=== PATIENT | female | born 2000 | race African-American/Black ===

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

== ENCOUNTER 2018-01-16 18:19 | Emergency (ER) | payer BC, MEDICAID ==
[2018-01-16 18:29] VITALS: BP 126/77
[2018-01-16] MEDS ORDERED: NS 0.9% 1000 ML* 1,000 ML IV ONE (19:46)
[2018-01-16] MEDS ORDERED: diPHENhydraMINE IV* 50 MG/ML 1 ml VIAL (BENADRYL) IV ONE (19:47)
[2018-01-16] MEDS ORDERED: Ketorolac INJ* 30 MG/ML 1 ML VIAL IV PUSH ONE (19:47)
--- NOTE | 2018-01-16 19:54 | UC ---
Headache HPI - HPI Summary HPI Summary: COMPLAINS OF 5 DAYS OF DIFFUSE HEADACHE. WHEN ASKED TO DESCRIBE HER PAIN AND GIVEN OPTIONS OF THROBBING, SHARP, DULL-SHE STATES "YES EVERYTHING". HAS A HISTORY OF HEADACHES AND MIGRAINES RUN IN HER FAMILY. STATES SHE CAME IN TODAY BECAUSE THIS WAS NOT LETTING UP. SHE COMPLAINS OF SOME ASSOCIATED DIZZINESS AND VISION FEELS FUZZY. - History Of Current Complaint Chief Complaint: UCHeadache Stated Complaint: HEADACHES Time Seen by Provider: 01/16/18 19:27 Hx Obtained From: Patient Hx Last Menstrual Period: 01/07/18 Onset/Duration: Gradual Onset, Lasting Days, Still Present Pain Intensity: 5 Pain Scale Used: 0-10 Numeric Timing: Constant Character: Sharp, Dull, Throbbing, Migraine Location of Headache: Diffuse Aggravating Factor(s): Bright Lights Allevating Factor(s): Nothing Associated Signs And Symptoms: Positive: Dizziness, Nausea. Negative: Decreased LOC - Allergies/Home Medications Allergies/Adverse Reactions: Allergies Allergy/AdvReac Type Severity Reaction Status Date / Time seasonal Allergy Eyes Uncoded 01/16/18 18:29 Itchy/Swollen/Red/Watery Home Medications: Home Medications Ibuprofen 400 mg PO 01/16/18 [History] PMH/Surg Hx/FS Hx/Imm Hx Respiratory History: Asthma Neurological History: Migraine Other History Of: Negative For: HIV, Hepatitis C - Surgical History Surgical History: Yes Surgery Procedure, Year, and Place: LIP SURGERY 2014 - Family History Known Family History: Positive: Hypertension, Renal Disease - FATHERS FAIMILY KIDNEY STONES, Blood Disorder - BLOOD CLOTS ON MOTHER'S SIDE, Other - asthma, MIGRAINES Negative: Cardiac Disease, Diabetes - Social History Alcohol Use: Rare Alcohol Amount: pt states daily or weekly Substance Use Type: None Substance Use Comment - Amount & Last Used: a week ago Smoking Status (MU): Never Smoked Tobacco Have You Smoked in the Last Year: No Household Exposure Type: Cigarettes - Immunization History Most Recent Influenza Vaccination: 2016 Most Recent Pneumonia Vaccination: never Vaccination Up to Date: Yes Review of Systems Constitutional: Negative Eyes: Photophobia Respiratory: Negative Cardiovascular: Negative Gastrointestinal: Negative Neurological: Headache, Other - DIZZY All Other Systems Reviewed And Are Negative: Yes Physical Exam Triage Information Reviewed: Yes Appearance: Well-Appearing, No Pain Distress, Well-Nourished Vital Signs: Initial Vital Signs Temp 99.0 F 01/16/18 18:25 Pulse 107 01/16/18 18:25 Resp 18 01/16/18 18:25 BP 126/77 01/16/18 18:25 Pulse Ox 100 01/16/18 18:25 Vital Signs Reviewed: Yes Eyes: Positive: Conjunctiva Clear ENT: Positive: Hearing grossly normal, Pharynx normal, TMs normal Neck: Positive: Supple, Nontender, No Lymphadenopathy Respiratory Exam: Normal Cardiovascular Exam: Normal Abdomen Description: Positive: Soft Musculoskeletal: Positive: No Edema Psychological: Positive: Age Appropriate Behavior Skin: Negative: rashes Re-Evaluation - Re-Evaluation First Eval Re-Evaluation Time: 20:40 - CONCEPCION IS GONE BUT PT C/O FEELING ANXIOUS AND COLD Change: Improved Second Eval Re-Evaluation Time: 21:20 - FEELING BETTER AFTER IV PULLED AND WARM BLANKET. READY FOR D/C Change: Improved Headache Course/Dx - Differential Dx/Diagnosis Provider Diagnoses: HEADACHE Discharge - Sign-Out/Discharge Documenting (check all that apply): Patient Departure All imaging exams completed and their final reports reviewed: No Studies - Discharge Plan Condition: Stable Disposition: HOME Patient Education Materials: General Headache (ED) Referrals: Ti Segura MD [Primary Care Provider] - 1 Week Additional Instructions: YOUR HEADACHE IMPROVED AFTER 30MG TORADOL AND 50MG OF BENADRYL. BE SURE TO STAY WELL HYDRATED AND RESTED. FOLLOW-UP WITH YOUR PCP. - Billing Disposition and Condition Condition: STABLE Disposition: Home
== END 2018-01-16 21:30 | disposition home or self-care (01) ==
LOC: UCEAST 18:19
DX: R51 Headache (principal); R42 Dizziness and giddiness; R11.0 Nausea
CPT/HCPCS: 96360; 96374; 96375; 99211; G0463; J1200; J1885

== ENCOUNTER 2018-01-17 21:25 | Emergency (ER) | payer BC, MEDICAID ==
[2018-01-17] MEDS ORDERED: Ketorolac INJ* 30 MG/ML 1 ML VIAL IV PUSH ONE (22:16)
[2018-01-17] MEDS ORDERED: PROCHLORPERAZINE INJ 5 MG/ML 2 ML VIAL IV ONE (22:16)
[2018-01-17] MEDS ORDERED: diPHENhydraMINE PO* 50 MG PO ONE (22:17)
[2018-01-17] MEDS ORDERED: NS 0.9% 1000 ML* 1,000 ML IV ONE (22:17)
--- NOTE | 2018-01-17 22:50 | ED ---
Headache - HPI Summary HPI Summary: 17-year-old female presents with headache since yesterday. She was seen yesterday in urgent care and headache was treated and was resolved. she admits to seeing flasher in the periphery. she states sometimes after the flashers her vision goes black. She states has had this before. She states she is dizzy. She admits to occasionally nausea but no vomiting. headache is a 6 out of 10. it is all over. has history of migraines. no fever. no neck pain. similar to previous migraines. did not try anything. - History Of Current Complaint Chief Complaint: EDHeadache Stated Complaint: HEADACHE/VISION LOSS Time Seen by Provider: 01/17/18 22:06 Hx Last Menstrual Period: 01/07/18 - Allergies/Home Medications Allergies/Adverse Reactions: Allergies Allergy/AdvReac Type Severity Reaction Status Date / Time seasonal Allergy Eyes Uncoded 01/17/18 21:30 Itchy/Swollen/Red/Watery PMH/Surg Hx/FS Hx/Imm Hx Endocrine/Hematology History: Reports: Hx Thyroid Disease, Hx Anemia Denies: Hx Diabetes Cardiovascular History: Denies: Hx Hypertension, Hx Pacemaker/ICD Respiratory History: Reports: Hx Asthma, Hx Seasonal Allergies Denies: Hx Chronic Obstructive Pulmonary Disease (COPD) GI History: Reports: Hx Gastroesophageal Reflux Disease Denies: Hx Ulcer History: Denies: Hx Renal Disease Musculoskeletal History: Reports: Hx Fibromyalgia Sensory History: Denies: Hx Hearing Aid Psychiatric History: Reports: Hx Anxiety, Hx Depression, Hx Community Mental Health Tx, Hx Bipolar Disorder Denies: Hx Eating Disorder - pt states she restricts, Hx Panic Disorder, Hx Inpatient Treatment, Hx Suicide Attempt, Hx of Violent Episodes Against Others, Hx Substance Abuse - Surgical History Surgery Procedure, Year, and Place: LIP SURGERY 2014 - Immunization History Date of Tetanus Vaccine: unk Date of Influenza Vaccine: none Immunizations Up to Date: Yes Infectious Disease History: No Infectious Disease History: Denies: Hx Clostridium Difficile, Hx Hepatitis, Hx Human Immunodeficiency Virus (HIV), Hx of Known/Suspected MRSA, Hx Shingles, Hx Tuberculosis, Hx Known/ Suspected VRE, Hx Known/Suspected VRSA, History Other Infectious Disease, Traveled Outside the [place] in Last 30 Days - Family History Known Family History: Positive: Hypertension, Renal Disease - FATHERS FAIMILY KIDNEY STONES, Blood Disorder - BLOOD CLOTS ON MOTHER'S SIDE, Other - asthma, MIGRAINES Negative: Cardiac Disease, Diabetes - Social History Alcohol Use: None Alcohol Amount: pt states daily or weekly. 01/17 denies use Hx Substance Use: No Substance Use Type: Reports: None Substance Use Comment - Amount & Last Used: a week ago Hx Tobacco Use: No Smoking Status (MU): Never Smoked Tobacco Have You Smoked in the Last Year: No Review of Systems Negative: Fever Positive: Other - flashing lights Negative: Chest Pain Negative: Shortness Of Breath Positive: Headache All Other Systems Reviewed And Are Negative: Yes Physical Exam Triage Information Reviewed: Yes Vital Signs On Initial Exam: Initial Vitals Temp Pulse Resp BP Pulse Ox 98.1 F 109 16 136/92 100 01/17/18 21:27 01/17/18 21:27 01/17/18 21:27 01/17/18 21:27 01/17/18 21:27 Vital Signs Reviewed: Yes Appearance: Positive: Well-Appearing Skin: Positive: Warm, Dry Head/Face: Positive: Normal Head/Face Inspection Eyes: Positive: Normal, EOMI, AJAY, Conjunctiva Clear, Other: - normal fundoscopic exam ENT: Positive: Normal ENT inspection, Pharynx normal, TMs normal Respiratory/Lung Sounds: Positive: Clear to Auscultation, Breath Sounds Present Cardiovascular: Positive: Normal, RRR Abdomen Description: Positive: Nontender, Soft Bowel Sounds: Positive: Present Musculoskeletal: Positive: Normal Neurological: Positive: Sensory/Motor Intact, Alert, Oriented to Person Place, Time, CN Intact II-III Psychiatric: Positive: Normal Diagnostics - Vital Signs Vital Signs Temp Pulse Resp BP Pulse Ox 01/17/18 21:27 98.1 F 109 16 136/92 100 - Laboratory Lab Statement: Any lab studies that have been ordered have been reviewed, and results considered in the medical decision making process. Headache Course/Dx - Course Course Of Treatment: 17-year-old female presents with headache since yesterday. She was seen yesterday in urgent care and headache was treated and was resolved. she admits to seeing flasher in the periphery. she states sometimes after the flashers her vision goes black. She states has had this before. She states she is dizzy. She admits to occasionally nausea but no vomiting. headache is a 6 out of 10. it is all over. has history of migraines. no fever. no neck pain. similar to previous migraines. did not try anything. on exam normal neuro exam. was going to give migraine cocktail but patient after waiting decided not to get medication. declined any other meds and wants to be discharge. will give referral to neurology. patient understand and agrees with plan. - Diagnoses Differential Diagnosis/HQI/PQRI: Migraine, Sinus Headache, Tension Headache Provider Diagnoses: Migraine headache Discharge - Sign-Out/Discharge Documenting (check all that apply): Patient Departure - Discharge Plan Condition: Good Disposition: HOME Patient Education Materials: Migraine Headache (ED) Referrals: Maxi Babin MD [Medical Doctor] - Ti Segura MD [Primary Care Provider] - Additional Instructions: follow up with neurology try Excedrin for migraines Drink plenty of fluids Return to ED if develop any new or worsening symptoms - Billing Disposition and Condition Condition: GOOD Disposition: Home
[2018-01-17 23:17] VITALS: BP 115/75
== END 2018-01-17 23:16 | disposition home or self-care (01) ==
LOC: ED 21:25
DX: G43.909 Migraine, unspecified, not intractable, without status migrainosus (principal)
CPT/HCPCS: 96374; 96375; 99282; A9270-GY; J0780; J1885

== ENCOUNTER 2018-02-27 01:33 | Emergency (ER) | payer MEDICAID ==
--- OUTSIDE RECORDS SUMMARY | 2018-02-27 02:00 | XMS REPORT ---
:2000 External Reference #:[id number] Author Organization [facility] Address [address] [place] [address] Phone [phone] Care Team Providers Name Role Phone Ti Segura MD Care Team Information Rn Admit Unavailable Ti Segura MD Primary Care Physician Unavailable Payers Type Date Identification Numbers Payment Provider Subscriber Medicaid Policy Number: [id number] [place] [employer] Name: Medicaid [address] PayID: [id number] [facility] [place] [address] Problems Description No Information Family History Date [...] SIG Indications Ordering Provider Ativan Active Tablets 2mg 1tabs one N64.52 Ti Gibson before Colton zheng MD . No Active Hx Unknown Medications 018 - 018 Buspirone HCL Hx Tablets 10mg 90tabs 1 by F41.9 Ti Gibson - mouth Colton MD stu 018 times a day Topamax Hx Tablets 50mg 60tabs take 1 G44.52 Ti Gibson - tablet by Colton mouth in MD Gibson the morning for a week, then take twice daily. Ativan Hx Tablets 1mg 1tabs one by N64.52 Ti Gibson - mouth 30 Colton min MD Gibson before MRI Seroquel Hx Tablets 100mg 30tabs take one F31.9 Ti Gibson - by mouth Colton nightly. MD Gibson Loratadine 0 Hx Tablets 10mg 1 by Unknown 000 - mouth every day 018 Ibuprofen 0 Hx Tablets 200mg 3 PO Unknown 000 - Q8HRS 018 Amoxicillin/Cl 0 Hx Tablets 875-125mg 1 twice a Unknown avulanate 000 - day w/ Potassium food. 018 Meclizine HCL Hx Tablets 25mg take 1 by Unknown 000 - mouth 3 times 018 daily as needed Xanax 0 Hx Tablets 0.25mg 1 tab by Unknown 000 - mouth bid - tid as 018 needed anxiety Proair HFA 0 Hx Aerosol 108(90Base) 2 puffs Unknown 000 - mcg/Act every 4-6 hours as 018 needed for cough Vital Signs Date Vital Result Comment 01/28/2018 BP Systolic 110 mmHg BP Diastolic 72 mmHg Heart Rate 80 /min Body Temperature 97.7 F Respiratory Rate 16 /min Height 61 inches 5'1" Weight 179.25 lb BMI (Body Mass Index) 33.9 kg/m2 Body Mass Index Percentile 97 % Weight Percentile 94th Height Percentile 10 % 11/25/2017 BP Systolic 100 mmHg BP Diastolic [...] Result H/L Range Note Laboratory test finding 01/28/2018 Thyroid Stimulating <pending> Hormone (TSH) Laboratory test finding 01/28/2018 Prolactin <pending> Estradiol <pending> Laboratory test finding 12/02/2017 Poc , Urine Negative Negative 1 Poc Urinalysis 12/02/2017 Poc Glucose, Urine Negative Negative Poc Bilirubin, Urine Negative Negative Poc Ketone, Urine Negative Negative Poc Specific [place], Urine 1.020 1.010-1.030 Poc Blood, Urine Negative Negative Poc pH, Urine 7.0 5-9 Poc Protein, Urine Negative Negative Poc Urobilinogen, Urine 0.2 Negative Poc Nitrite, Urine Negative Negative Poc Leukocytes, Urine Negative Negative Poc Color, Urine Yellow Poc Clarity, Urine Clear 2 CBC No Diff 10/23/2017 White Blood Count [...] Egfr Non- 124.0 >60 Egfr 150.0 >60 3 Laboratory test finding 10/23/2017 HCG < 0.60 mIU/mL 4 Laboratory test finding 10/23/2017 [facility] [...] Egfr Non- 107.8 >60 Egfr 130.4 >60 5 Laboratory test finding 09/27/2017 HCG < 0.60 mIU/mL 6 Acetaminophen < 15 g/mL 7 Alcohol < 10 mg/dL <10 Salicylate < 2.50 mg/dL <30 TSH (Thyroid Stim Horm) 1.44 mcIU/mL 0.34-5.60 Laboratory test finding 09/25/2017 TSH 0.73 mIU/L 0.50-6.00 Laboratory test finding 09/25/2017 C-Reactive Protein, Quant 0.4 mg/L 0.0 -4.9 8 Prolactin 38.1 ng/mL High 4.8-23.3 8 CBC Electronic (Fma New) 09/25/2017 WBC 5.20 [...] High 0.7-7.0 Basophil% 0.6 % 0-1.2 1 Lending Activities Supervisor: [id number] If is still suspected, please repeat test after 48 to 72 hours. 2 Lending Activities Supervisor: [id number] 3 Because ethnic data is not always [...] levels of up to 20 mIU/mL 5 Because ethnic data is not always readily [...] 15-29 5 Kidney failure <15 (or dialysis) 6 <5.0 Negative 5.0 - 25.0 Indeterminate (Repeat testing recommended after 72 hours) >25.0 Positive Perimenopausal women can display HCG levels of up to 20 mIU/mL 7 Therapeutic concentration: <50 ug/mL Toxic concentration: >120 ug/mL 8 1SST Procedures Description No Information Encounters Type Date Location Provider CPT E/M Dx Office Visit 11/25/2017 2:00p [place] [id number] G44.52 F41.9 Office Visit 10/28/2017 4:10p [place] [address] G44.52 N64.52 F31.9 Office Visit 10/16/2017 3:50p [place] [address] N64.52 Office Visit 09/25/2017 2:00p [place] [address] N61.1 F31.9 R42 Plan of Care Future Appointment(s):03/03/2018 12:00 pm - Ti Segura MD at Main [id number]/28/2018 - Ti Segura MDN64.52 Nipple dischargeNew Medication :Ativan 2 mgNew Xrays:MRI Pituitary W/Wo [id number] New daily persistent headache (NDPH)AllComments:~B_~U_Medication Management~b_~u_ Patient Understands medications she's taking? Yes No Are there Barriers to Adherence? Yes No Has the patient been asked about herbal supplements and therapies, and OTC meds? Yes No
[2018-02-27] MEDS ORDERED: Butalb/Acetamin/Caff TAB* 1 TAB PO ONE (02:15)
--- NOTE | 2018-02-27 02:24 | ED ---
Headache - HPI Summary HPI Summary: The patient is a 17 y/o F presenting to [facility] with a chief complaint of a headache that has been occurring for the last three hours. She has been to the hospital for the same headache before. She has taken Ibuprofen to no relief. There is also associated numbness in her left arm and leg. She denies fever and sore throat. - History Of Current Complaint Chief Complaint: EDHeadache Stated Complaint: HEADACHE, LEFT SIDED NUMBNESS Time Seen by Provider: 02/27/18 02:09 Hx Obtained From: Patient Hx Last Menstrual Period: 01/07/18 Onset/Duration: Sudden Onset, Started hours ago - three, Still Present Initially Headache Was: Moderate Currently Pain Is: Moderate Timing: Constant Character: Typical Headache Location of Headache: Diffuse Aggravating Factor: Nothing Allevating Factors: Nothing Associated Signs And Symptoms: Other (Noted In Comments) - POSITIVE: numbness in left arm and leg; NEGATIVE: fever, sore throat - Allergies/Home Medications Allergies/Adverse Reactions: Allergies Allergy/AdvReac Type Severity Reaction Status Date / Time seasonal Allergy Eyes Uncoded 01/17/18 21:30 Itchy/Swollen/Red/Watery PMH/Surg Hx/FS Hx/Imm Hx Endocrine/Hematology History: Reports: Hx Thyroid Disease, Hx Anemia Denies: Hx Diabetes Cardiovascular History: Denies: Hx Hypertension, Hx Pacemaker/ICD Respiratory History: Reports: Hx Asthma, Hx Seasonal Allergies Denies: Hx Chronic Obstructive Pulmonary Disease (COPD) GI History: Reports: Hx Gastroesophageal Reflux Disease Denies: Hx Ulcer History: Denies: Hx Renal Disease Musculoskeletal History: Reports: Hx Fibromyalgia Sensory History: Denies: Hx Hearing Aid Psychiatric History: Reports: Hx Anxiety, Hx Depression, Hx Community Mental Health Tx, Hx Bipolar Disorder Denies: Hx Eating Disorder - pt states she restricts, Hx Panic Disorder, Hx Inpatient Treatment, Hx Suicide Attempt, Hx of Violent Episodes Against Others, Hx Substance Abuse - Surgical History Surgery Procedure, Year, and Place: LIP SURGERY 2014 - Immunization History Date of Tetanus Vaccine: unk Date of Influenza Vaccine: none Infectious Disease History: No Infectious Disease History: Denies: Hx Clostridium Difficile, Hx Hepatitis, Hx Human Immunodeficiency Virus (HIV), Hx of Known/Suspected MRSA, Hx Shingles, Hx Tuberculosis, Hx Known/ Suspected VRE, Hx Known/Suspected VRSA, History Other Infectious Disease, Traveled Outside the [place] in Last 30 Days - Family History Known Family History: Positive: Hypertension, Renal Disease - FATHERS FAIMILY KIDNEY STONES, Blood Disorder - BLOOD CLOTS ON MOTHER'S SIDE, Other - asthma, MIGRAINES Negative: Cardiac Disease, Diabetes - Social History Alcohol Use: None Alcohol Amount: pt states daily or weekly. 01/17 denies use Hx Substance Use: No Substance Use Type: Reports: None Substance Use Comment - Amount & Last Used: a week ago Hx Tobacco Use: No Smoking Status (MU): Never Smoked Tobacco Have You Smoked in the Last Year: No Review of Systems Negative: Fever Negative: Sore Throat Positive: Headache, Numbness - in left arm and leg All Other Systems Reviewed And Are Negative: Yes Physical Exam - Summary Physical Exam Summary: Appearance: Well appearing, no pain distress Skin: warm, dry, reflects adequate perfusion Head/face: normal Eyes: EOMI, AJAY ENT: normal Neck: supple, non-tender Respiratory: CTA, breath sounds present Cardiovascular: RRR, pulses symmetrical Abdomen: non-tender, soft Musculoskeletal: normal, strength/ROM intact Neuro: normal, sensory motor intact, A&Ox3 Triage Information Reviewed: Yes Vital Signs On Initial Exam: Initial Vitals Temp Pulse Resp BP Pulse Ox 98 F 79 20 109/85 100 02/27/18 01:53 02/27/18 01:53 02/27/18 01:53 02/27/18 01:53 02/27/18 01:53 Vital Signs Reviewed: Yes Diagnostics - Vital Signs Vital Signs Temp Pulse Resp BP Pulse Ox 02/27/18 01:53 98 F 79 20 109/85 100 - Laboratory Lab Statement: Any lab studies that have been ordered have been reviewed, and results considered in the medical decision making process. Headache Course/Dx - Course Course Of Treatment: The patient is a 17 y/o F presenting to [facility] with a chief complaint of a headache that has been occurring for the last three hours. She additionally c/o numbness in the left arm and leg, but she denies fever and sore throat. There are no significant findings upon exam. In the ED course, the patient was given Fioricet. She is diagnosed with headache. She is discharged with instructions for dx, prescription for Voltaren, and follow up with PCP. Patient agrees and understands the need for return to the ED if symptoms worsen. - Diagnoses Differential Diagnosis/HQI/PQRI: Migraine, Sinus Headache, Tension Headache Provider Diagnoses: Headache Discharge - Sign-Out/Discharge Documenting (check all that apply): Patient Departure - Patient will be discharged home. - Discharge Plan Condition: Stable Disposition: HOME Prescriptions: Diclofenac Sodium EC TAB* [Voltaren EC TAB*] 50 mg PO TID PRN #[id number] tab.ec MDD 3 PRN Reason: Pain Patient Education Materials: Acute Headache (ED) Referrals: Ti Segura MD [Primary Care Provider] - 3 Days Additional Instructions: Please take medication as prescribed. Follow up with your primary care provider in 2-3 days. Return to the emergency department for any new or worsening symptoms. - Billing Disposition and Condition Condition: STABLE Disposition: Home - Attestation Statements Document Initiated by Osbaldo: Yes Documenting Scribe: Esha Archer Provider For Whom Osbaldo is Documenting (Include Credential): Dr. Felice Benton MD Scribe Attestation: Esha Colvin scribed for Dr. Felice Benton MD on 02/27/18 at 0404. Scribe Documentation Reviewed: Yes Provider Attestation: The documentation as recorded by the Esha giron accurately reflects the service I personally performed and the decisions made by me, Dr. Felice Benton MD Status of Scribcarlos Document: Viewed
[2018-02-27 03:36] VITALS: BP 119/77
== END 2018-02-27 03:35 | disposition home or self-care (01) ==
LOC: ED 01:33
DX: R51 Headache (principal); J45.909 Unspecified asthma, uncomplicated; K21.9 Gastro-esophageal reflux disease without esophagitis; M79.7 Fibromyalgia
CPT/HCPCS: 99282; A9270-GY

== ENCOUNTER 2018-05-04 21:16 | Emergency (ER) | payer MEDICAID ==
[2018-05-04 21:32] VITALS: BP 139/76
[2018-05-04] MEDS ORDERED: Ibuprofen TAB* 600 MG PO ONE (21:36)
--- NOTE | 2018-05-04 21:40 | UC ---
FLU HPI - HPI Summary HPI Summary: 17-year-old female presents with complaints of fever, chills, fatigue, general malaise, body aches, headache, nasal congestion, nausea, and a dry nonproductive cough 3 days. She was seen at [facility] emergency room yesterday for same. She had negative chest x-ray, negative rapid influenza , negative rapid strep, normal CBC, normal CMP except for a mildly elevated glucose of 111, normal lactic acid, and normal urinalysis. She was diagnosed with a viral illness, prescribed Tessalon Perles as needed for cough, ondansetron as needed for nausea, and instructed on symptomatic care including use of [id number] DiMenna tendon ibuprofen for her fever, headaches, and body aches. Patient states that she has not taken any acetaminophen or ibuprofen since yesterday and that she just picked up her prescriptions for the Tessalon Perles and Zofran a half hour prior to arriving at the clinic. Denies ear pain, sore throat, chest pain, shortness of breath, abdominal pain, vomiting , or diarrhea. - History of Current Complaint Chief Complaint: UCGeneralIllness Stated Complaint: FEVER FLU Time Seen by Provider: 05/04/18 21:30 Hx Obtained From: Patient Hx Last Menstrual Period: 01/07/18 Pain Intensity: 8 - Allergy/Home Medications Allergies/Adverse Reactions: Allergies Allergy/AdvReac Type Severity Reaction Status Date / Time seasonal Allergy Eyes Uncoded 05/03/18 22:26 Itchy/Swollen/Red/Watery PMH/Surg Hx/FS Hx/Imm Hx Psychological History: Anxiety, Other - Oppositional defiant disorder Other History Of: Negative For: HIV, Hepatitis C - Surgical History Surgical History: Yes Surgery Procedure, Year, and Place: LIP SURGERY 2014 - Family History Known Family History: Positive: Hypertension, Renal Disease - FATHERS FAIMILY KIDNEY STONES, Blood Disorder - BLOOD CLOTS ON MOTHER'S SIDE, Other - asthma, MIGRAINES Negative: Cardiac Disease, Diabetes - Social History Occupation: Employed Part-time Lives: With Family Alcohol Use: None Alcohol Amount: pt states daily or weekly. 01/17 denies use Substance Use Type: None Substance Use Comment - Amount & Last Used: a week ago Smoking Status (MU): Never Smoked Tobacco Have You Smoked in the Last Year: No Household Exposure Type: Cigarettes - Immunization History Most Recent Influenza Vaccination: 2016 Most Recent Pneumonia Vaccination: never Vaccination Up to Date: Yes Review of Systems All Other Systems Reviewed And Are Negative: Yes Constitutional: Positive: Fever, Chills, Fatigue Skin: Negative: Rash Eyes: Negative: Drainage, Eye Redness ENT: Positive: Nasal Discharge, Sinus Congestion. Negative: Sore Throat, Ear Ache, Sinus Pain/Tenderness Respiratory: Positive: Cough. Negative: Shortness Of Breath Cardiovascular: Negative: Palpitations, Chest Pain Gastrointestinal: Negative: Abdominal Pain, Vomiting, Diarrhea, Nausea Genitourinary: Positive: Negative Musculoskeletal: Positive: Myalgia Neurological: Positive: Headache. Negative: Weakness, Paresthesia, Numbness Is Patient Immunocompromised?: No Physical Exam - Summary Physical Exam Summary: GENERAL APPEARANCE: Well developed, well nourished, alert and cooperative, and appears to be in no acute distress. EYES: Conjunctiva clear. No discharge. Vision is grossly intact. EARS: External auditory canals and tympanic membranes clear, hearing grossly intact. NOSE: Mild nasal congestion with clear discharge. THROAT: Mild pharyngeal erythema with cobblestoning. No tonsilar inflammation, swelling, exudate, or lesions. NECK: Neck supple, non-tender without lymphadenopathy. CARDIAC: Normal S1 and S2. No S3, S4 or murmurs. Rhythm is regular. There is no peripheral edema, cyanosis or pallor. Extremities are warm and well perfused. Capillary refill is less than 2 seconds. LUNGS: Clear to auscultation without rales, rhonchi, wheezing or diminished breath sounds. ABDOMEN: Positive bowel sounds. Soft, nondistended, nontender. No guarding or rebound. No masses or hepatosplenomegally. No CVA tenderness. MUSKULOSKELETAL: ROM intact to all extremities. No joint erythema or tenderness. Normal muscular development. Normal gait. SKIN: Skin normal color, texture and turgor with no lesions or eruptions. Triage Information Reviewed: Yes Vital Signs: Initial Vital Signs Temp 101.4 F 05/04/18 21: Pulse 125 05/04/18 21:28 Resp 16 05/04/18 21:28 BP 139/76 05/04/18 21: Pulse Ox 100 05/04/18 21:28 Vital Signs Reviewed: Yes Flu Course/Dx - Course Course Of Treatment: 17-year-old female presents with complaints of fever, chills, fatigue, general malaise, body aches, headache, nasal congestion, nausea , and a dry nonproductive cough 3 days. She was seen at [facility] emergency room yesterday for same. She had negative chest x-ray, negative rapid influenza, negative rapid strep, normal CBC, normal CMP except for a mildly elevated glucose of 111, normal lactic acid, and normal urinalysis. She was diagnosed with a viral illness, prescribed Tessalon Perles as needed for cough, ondansetron as needed for nausea, and instructed on symptomatic care including use of [id number] DiMenna tendon ibuprofen for her fever, headaches, and body aches. Patient states that she has not taken any acetaminophen or ibuprofen since yesterday and that she just picked up her prescriptions for the Tessalon Perles and Zofran a half hour prior to arriving at the clinic. Denies ear pain, sore throat, chest pain, shortness of breath, abdominal pain, vomiting, or diarrhea. She presents with an elevated temperature of 101.2 F, without tachycardia, mild elevation of blood pressure, otherwise vital signs are stable. Exam shows a get an old female in no acute distress with mild nasal congestion, mild pharyngeal erythema, clear bilateral breath sounds, a dry nonproductive cough, and otherwise unremarkable exam. Considering the thorough workup performed by the emergency room the night before no further studies were ordered at this time. Patient was given ibuprofen 600 mg and a dose of Tessalon Perles here in the clinic. She was counseled on appropriate symptomatic care for viral illness. She is to follow- up with her primary care provider in 7 days if symptoms persist. Anticipatory guidance and warning symptoms were reviewed with the patient. Verbalizes understanding and agrees with plan of care. - Differential Dx/Diagnosis Differential Diagnosis/HQI/PQRI: Bronchitis, Influenza, Pneumonia, Upper Respiratory Infection Provider Diagnosis: Viral syndrome Discharge - Sign-Out/Discharge Documenting (check all that apply): Patient Departure All imaging exams completed and their final reports reviewed: No Studies - Discharge Plan Condition: Stable Disposition: HOME Patient Education Materials: Viral Syndrome (ED) Referrals: Ti Segura MD [Primary Care Provider] - Additional Instructions: Your history and exam are consistent with a viral upper respiratory infection. Viral infections do not respond to antibiotics and are limited to the treatment of symptoms. Viral infections typically run their course in 7-10 days. Get plenty of rest. Drink plenty of fluids to avoid dehydration especially if you are running any fever. Use the ondansetron (Zofran) that was prescribed to you by the emergency as directed for any nausea. Use the Tessalon Perles that were prescribed to you by the emergency as needed for cough. Take over the counter acetaminophen (Tylenol) or ibuprofen (Advil, Motrin) according to directions as needed for pain or fever. Use salt water gargles several times a day if you have a sore throat. You may also use Chloraseptic spray or Cepacol lonzenges according to directions which contain a numbing medication and can provide some temporary relief from your sore throat. Follow up with your primary care provider in 7 days if symptoms persist. Seek immediate medical attention in the emergency room if you have fever greater than 100.5 F despite taking acetaminophen or ibuprofen, have chest pain , difficulty breathing, are unable to swallow, or have any worsening of symptoms. - Billing Disposition and Condition Condition: STABLE Disposition: Home
[2018-05-04] MEDS ORDERED: Benzonatate CAP* 100 MG PO ONE (21:45)
== END 2018-05-04 22:00 | disposition home or self-care (01) ==
LOC: UCEAST 21:16
DX: B34.9 Viral infection, unspecified (principal); Z77.22 Contact with and (suspected) exposure to environmental tobacco smoke (acute) (chronic); Z91.09 Other allergy status, other than to drugs and biological substances
CPT/HCPCS: 99212; A9270-GY; G0463

== ENCOUNTER 2018-06-02 23:15 | Emergency (ER) | payer BC, MEDICAID ==
[2018-06-03] MEDS ORDERED: Ibuprofen TAB* 400 MG PO ONE (00:45)
--- NOTE | 2018-06-03 00:47 | ED ---
Upper Extremity Pain - HPI Summary HPI Summary: This patient is a 17 year old F presenting to [facility] with a chief complaint of left arm pain since 13:00. Patient denies any injury. Patient notes that her pain has resolved since arriving at [facility]. The patient rates the pain 6/10 in severity. Symptoms aggravated by nothing. Symptoms alleviated by nothing. Patient reports numbness in her LUE, upper back pain, and neck pain. - History of Current Complaint Chief Complaint: EDExtremityUpper Stated Complaint: "LEFT ARM PAIN" PER PT Time Seen by Provider: 06/03/18 00:38 Hx Obtained From: Patient Hx Last Menstrual Period: 01/07/18 Mechanism Of Injury: Unknown Onset/Duration: Started Hours Ago, Atraumatic, Resolved Timing: Constant, Lasting Hours Severity Initially: Mild Severity Currently: None Pain Location: Arm - left arm Aggravating Factor(s): Nothing Alleviating Factor(s): Nothing Associated Signs & Symptoms: Positive: Numbness/Tingling - in LUE, Back Pain - upper back pain, Neck Pain - Allergies/Home Medications Allergies/Adverse Reactions: Allergies Allergy/AdvReac Type Severity Reaction Status Date / Time seasonal Allergy Eyes Uncoded 06/02/18 23:23 Itchy/Swollen/Red/Watery PMH/Surg Hx/FS Hx/Imm Hx Endocrine/Hematology History: Reports: Hx Thyroid Disease, Hx Anemia Denies: Hx Diabetes Cardiovascular History: Denies: Hx Hypertension, Hx Pacemaker/ICD Respiratory History: Reports: Hx Asthma, Hx Seasonal Allergies Denies: Hx Chronic Obstructive Pulmonary Disease (COPD) GI History: Reports: Hx Gastroesophageal Reflux Disease Denies: Hx Ulcer History: Denies: Hx Renal Disease Musculoskeletal History: Reports: Hx Fibromyalgia Sensory History: Denies: Hx Legally Blind, Hx Hearing Aid Opthamlomology History: Denies: Hx Legally Blind Neurological History: Denies: Hx Developmental Delay Psychiatric History: Reports: Hx Anxiety, Hx Depression, Hx Community Mental Health Tx, Hx Bipolar Disorder Denies: Hx Eating Disorder - pt states she restricts, Hx Panic Disorder, Hx Inpatient Treatment, Hx Suicide Attempt, Hx of Violent Episodes Against Others, Hx Substance Abuse - Surgical History Surgery Procedure, Year, and Place: LIP SURGERY 2014 - Immunization History Date of Tetanus Vaccine: unk Date of Influenza Vaccine: none Infectious Disease History: No Infectious Disease History: Denies: Hx Clostridium Difficile, Hx Hepatitis, Hx Human Immunodeficiency Virus (HIV), Hx of Known/Suspected MRSA, Hx Shingles, Hx Tuberculosis, Hx Known/ Suspected VRE, Hx Known/Suspected VRSA, History Other Infectious Disease, Traveled Outside the [place] in Last 30 Days - Family History Known Family History: Positive: Hypertension, Renal Disease - FATHERS FAIMILY KIDNEY STONES, Blood Disorder - BLOOD CLOTS ON MOTHER'S SIDE, Other - asthma, MIGRAINES Negative: Cardiac Disease, Diabetes - Social History Alcohol Use: None Alcohol Amount: pt states daily or weekly. 01/17 denies use Hx Substance Use: No Substance Use Type: Reports: None Substance Use Comment - Amount & Last Used: a week ago Hx Tobacco Use: No Smoking Status (MU): Never Smoked Tobacco Have You Smoked in the Last Year: No Review of Systems Negative: Fever Negative: Epistaxis Negative: Vomiting Musculoskeletal: Other - neck pain, upper back pain Positive: Myalgia - left arm pain Positive: Numbness - in LUE All Other Systems Reviewed And Are Negative: Yes Physical Exam - Summary Physical Exam Summary: VITAL SIGNS: Reviewed. GENERAL: Patient is a well-developed and nourished FEMALE who is lying comfortable in the stretcher. Patient is not in any acute respiratory distress. HEAD AND FACE: No signs of trauma. No ecchymosis, hematomas or skull depressions. No sinus tenderness. EYES: PERRLA, EOMI x 2, No injected conjunctiva, no nystagmus. EARS: Hearing grossly intact. Ear canals and tympanic membranes are within normal limits. MOUTH: Oropharynx within normal limits. NECK: Supple, trachea is midline, no adenopathy, no JVD, no carotid bruit, mild c-spine tenderness, neck with full ROM. CHEST: Symmetric, no tenderness at palpation LUNGS: Clear to auscultation bilaterally. No wheezing or crackles. CVS: Regular rate and rhythm, S1 and S2 present, no murmurs or gallops appreciated. ABDOMEN: Soft, non-tender. No signs of distention. No rebound no guarding, and no masses palpated. Bowel sounds are normal. EXTREMITIES: FROM in all major joints, no edema, no cyanosis or clubbing. NEURO: Alert and oriented x 3. No acute neurological deficits. Speech is normal and follows commands. SKIN: Dry and warm Triage Information Reviewed: Yes Vital Signs On Initial Exam: Initial Vitals Temp Pulse Resp BP Pulse Ox 98.0 F 77 16 125/84 100 06/02/18 23:20 06/02/18 23:20 06/02/18 23:20 06/02/18 23:20 06/02/18 23:20 Vital Signs Reviewed: Yes Diagnostics - Vital Signs Vital Signs Temp Pulse Resp BP Pulse Ox 06/02/18 23:20 98.0 F 77 16 125/84 100 - Laboratory Lab Statement: Any lab studies that have been ordered have been reviewed, and results considered in the medical decision making process. Course/Dx - Course Course Of Treatment: This patient is a 17 year old F presenting to [facility] with a chief complaint of left arm pain since 13:00. Patient denies any injury. Patient notes that her pain has resolved since arriving at [facility]. Patient reports numbness in her LUE, upper back pain, and neck pain. Physical exam reveals mild c-spine tenderness. Dx cervical radiculopathy. Patient will be discharged home with follow up from PCP and prescription for ibuprofen. The patient is agreeable with this plan. - Diagnoses Provider Diagnoses: Cervical radiculopathy Discharge - Sign-Out/Discharge Documenting (check all that apply): Patient Departure - discharge home Patient Received Moderate/Deep Sedation with Procedure: No - Discharge Plan Condition: Stable Disposition: HOME Patient Education Materials: Cervical Radiculopathy (ED) Referrals: Ti Segura MD [Primary Care Provider] - 1 Day Additional Instructions: Follow up with your primary care physician in 1-2 days. Return to the emergency department with any new or worsening symptoms. - Attestation Statements Document Initiated by Scribe: Yes Documenting Scribe: Franca Domingo Provider For Whom Osbaldo is Documenting (Include Credential): Morelia Jack MD Scribe Attestation: Franca Colvin, scribed for Morelia Jack MD on 06/03/18 at 0051. Status of Scribe Document: Ready
[2018-06-03 01:25] VITALS: BP 118/76
== END 2018-06-03 00:54 | disposition home or self-care (01) ==
LOC: ED 23:15
DX: M54.12 Radiculopathy, cervical region (principal); M79.602 Pain in left arm; M54.9 Dorsalgia, unspecified; M54.2 Cervicalgia; K21.9 Gastro-esophageal reflux disease without esophagitis
CPT/HCPCS: 99281; A9270-GY

== ENCOUNTER 2018-06-27 06:21 | Emergency (ER) | payer OTHER, MEDICAID ==
--- NOTE | 2018-06-27 07:24 | ED ---
Complex/Multi-Sys Presentation - HPI Summary HPI Summary: This patient is a 18 year old F presenting to ED with a chief complaint of generalized numbness and quakiness in her chest since 0500 this morning. Patient is able to ambulate fine. The patient rates the pain 0/10 in severity. Symptoms aggravated by nothing. Symptoms alleviated by nothing. Patient reports confusion recently. Patient denies use of substances, drinking, and smoking. - History Of Current Complaint Chief Complaint: EDGeneral Time Seen by Provider: 06/27/18 07:07 Hx Obtained From: Patient Onset/Duration: Sudden Onset, Lasting Hours - since 0500 this morning, Still Present Timing: Constant, Hours Severity Currently: None Aggravating Factor(s): nothing Alleviating Factor(s): nothing Associated Signs And Symptoms: Positive: Confusion, Other - generalized numbness , "quakiness" in her chest - Allergies/Home Medications Allergies/Adverse Reactions: Allergies Allergy/AdvReac Type Severity Reaction Status Date / Time seasonal Allergy Eyes Uncoded 06/27/18 06:27 Itchy/Swollen/Red/Watery PMH/Surg Hx/FS Hx/Imm Hx Endocrine/Hematology History: Reports: Hx Thyroid Disease, Hx Anemia Denies: Hx Diabetes Cardiovascular History: Denies: Hx Hypertension, Hx Pacemaker/ICD Respiratory History: Reports: Hx Asthma, Hx Seasonal Allergies Denies: Hx Chronic Obstructive Pulmonary Disease (COPD) GI History: Reports: Hx Gastroesophageal Reflux Disease Denies: Hx Ulcer History: Denies: Hx Renal Disease Musculoskeletal History: Reports: Hx Fibromyalgia Sensory History: Denies: Hx Legally Blind, Hx Hearing Aid Opthamlomology History: Denies: Hx Legally Blind Neurological History: Denies: Hx Developmental Delay Psychiatric History: Reports: Hx Anxiety, Hx Depression, Hx Community Mental Health Tx, Hx Bipolar Disorder Denies: Hx Eating Disorder - pt states she restricts, Hx Panic Disorder, Hx Inpatient Treatment, Hx Suicide Attempt, Hx of Violent Episodes Against Others, Hx Substance Abuse - Surgical History Surgery Procedure, Year, and Place: LIP SURGERY 2014 - Immunization History Date of Tetanus Vaccine: unk Date of Influenza Vaccine: none Infectious Disease History: No Infectious Disease History: Denies: Hx Clostridium Difficile, Hx Hepatitis, Hx Human Immunodeficiency Virus (HIV), Hx of Known/Suspected MRSA, Hx Shingles, Hx Tuberculosis, Hx Known/ Suspected VRE, Hx Known/Suspected VRSA, History Other Infectious Disease, Traveled Outside the [place] in Last 30 Days - Family History Known Family History: Positive: Hypertension, Renal Disease - FATHERS FAIMILY KIDNEY STONES, Blood Disorder - BLOOD CLOTS ON MOTHER'S SIDE, Other - asthma, MIGRAINES Negative: Cardiac Disease, Diabetes - Social History Alcohol Use: None Alcohol Amount: pt states daily or weekly. 01/17 denies use Hx Substance Use: No Substance Use Type: Reports: None Substance Use Comment - Amount & Last Used: a week ago Hx Tobacco Use: No Smoking Status (MU): Never Smoked Tobacco Have You Smoked in the Last Year: No Review of Systems Positive: Other - "quakiness in her chest Neurological: Other - confusion recently Positive: Numbness - generalized All Other Systems Reviewed And Are Negative: Yes Physical Exam - Summary Physical Exam Summary: Appearance: Well appearing, no pain distress Skin: warm, dry, reflects adequate perfusion Head/face: normal Eyes: EOMI, AJAY ENT: normal Neck: supple, non-tender Respiratory: CTA, breath sounds present Cardiovascular: RRR, pulses symmetrical Abdomen: non-tender, soft Musculoskeletal: normal, strength/ROM intact Neuro: normal, sensory motor intact, A&Ox3 Triage Information Reviewed: Yes Vital Signs On Initial Exam: Initial Vitals Temp Pulse Resp BP Pulse Ox 97.7 F 82 16 130/72 98 06/27/18 06:25 06/27/18 06:25 06/27/18 06:25 06/27/18 06:25 06/27/18 06:25 Vital Signs Reviewed: Yes Diagnostics - Vital Signs Vital Signs Temp Pulse Resp BP Pulse Ox 06/27/18 06:39 94 118/88 99 06/27/18 06:38 89 99 06/27/18 06:25 97.7 F 82 16 130/72 98 - Laboratory Result Diagrams: 06/27/18 07:34 06/27/18 07:34 Lab Statement: Any lab studies that have been ordered have been reviewed, and results considered in the medical decision making process. Re-Evaluation - Re-Evaluation First Eval Re-Evaluation Time: 09:08 Comment: Discussed results with the patient and plan for discharge. Patient understands and agrees with this plan. Complex Multi-Symp Course/Dx Assessment/Plan: This patient is a 18 year old F presenting to ED with a chief complaint of generalized numbness and quakiness in her chest since 0500 this morning. Blood work/UA obtained. Patient will be discharged with dx of weakness. Patient understands and agrees with this plan. - Diagnoses Differential Diagnoses/HQI/PQRI: Other - weakness Provider Diagnoses: Weakness Discharge - Sign-Out/Discharge Documenting (check all that apply): Patient Departure - discharge Patient Received Moderate/Deep Sedation with Procedure: No - Discharge Plan Condition: Stable Disposition: HOME Patient Education Materials: Weakness (ED) Referrals: Ti Segura MD [Primary Care Provider] - 3 Days Additional Instructions: RETURN TO THE EMERGENCY DEPARTMENT FOR CHANGING OR WORSENING SYMPTOMS. - Attestation Statements Document Initiated by Scribe: Yes Documenting Scribe: Kvng Hogue Provider For Whom Scribe is Documenting (Include Credential): Felice Benton MD Scribe Attestation: Kvng Colvin, scribed for Felice Benton MD on 06/27/18 at 0916.
[2018-06-27 07:39] LABS: ABS Basophils 0.1 10^3/ul (0-0.2); ABS Eosinophils 0.4 10^3/ul (0-0.6); ABS Monocytes 0.5 10^3/ul (0-0.8); ABS Nucleated RBC 0 10^3/ul; Hematocrit 37 % (33-41); Hemoglobin 12.4 g/dL (12.0-16.0); Lymphocyte % 33.9 %; Mean Corpuscular HGB Conc 33 g/dL (31-36); Mean Corpuscular Hemoglobin 29 pg (27-31); Mean Corpuscular Volume 86 fL (80-97); Mean Platelet Volume 7.3 fL (7.4-10.4); Nucleated Red Blood Cells % 0; Platelet Count 292 10^3/uL (150-450); Red Blood Count 4.34 10^6 /uL (3.70-4.87); Red Cell Distribution Width 13 % (10.5-15); White Blood Count 5.9 10^3/uL (3.5-10.8)
[2018-06-27 07:57] LABS: ALT 8 U/L (7-52); AST 13 U/L (13-39); Albumin 3.7 g/dL (3.2-5.2); Albumin/Globulin Ratio 1.3 (1-3); Alkaline Phosphatase 51 U/L (34-104); Anion Gap 5 mmol/L (2-11); BUN/Creatinine Ratio 15.8 (8-20); Blood Urea Nitrogen 12 mg/dL (6-24); CO2 Carbon Dioxide 27 mmol/L (22-32); Calcium 8.8 mg/dL (8.6-10.3); Chloride 105 mmol/L (101-111); EGFR African American 117.4 (>60); Globulin 2.8 g/dL (2-4); Glucose 100 mg/dL (70-100); Potassium 3.6 mmol/L (3.5-5.0); Sodium 137 mmol/L (135-145); Total Protein 6.5 g/dL (6.4-8.9)
[2018-06-27 08:03] LABS: HCG Pregnancy < 0.60 mIU/mL
[2018-06-27 09:14] VITALS: BP 103/79
== END 2018-06-27 09:24 | disposition home or self-care (01) ==
LOC: ED 06:21
DX: R53.1 Weakness (principal); E07.9 Disorder of thyroid, unspecified; D64.9 Anemia, unspecified; J45.909 Unspecified asthma, uncomplicated; K21.9 Gastro-esophageal reflux disease without esophagitis; M79.7 Fibromyalgia; F41.9 Anxiety disorder, unspecified; F31.9 Bipolar disorder, unspecified
CPT/HCPCS: 36415; 80053; 83690; 84702; 85025; 99283

== ENCOUNTER 2018-11-08 14:32 | Emergency (ER) | payer MEDICAID, OTHER ==
[2018-11-08 15:10] VITALS: BP 120/77
--- NOTE | 2018-11-08 15:10 | UC ---
Abdominal Pain Female HPI - HPI Summary HPI Summary: 18 yo female presents with abdominal pain. She tells me that 5 days ago she developed epigastric and suprapubic discomfort with burning in her RUQ, RLQ, LUQ , and LLQ. Discomfort seems worse after eating. She does feel nauseous and has had 1 episode of loose stools. She has not vomited. She has not eaten today due to discomfort and nausea. She is currently on her period and wonders if her suprapubic discomfort is related to her period. She tried taking pepto bismal with no relief. Denies fever, chills, SOB, chest pain, vomiting, dysuria, flank pain. - History of Current Complaint Chief Complaint: UCGI Stated Complaint: ABDOMINAL PAIN Time Seen by Provider: 11/08/18 15:10 Hx Obtained From: Patient Hx Last Menstrual Period: [id number] Onset/Duration: Sudden Onset Severity Initially: Moderate Severity Currently: Moderate Pain Intensity: 6 Pain Scale Used: 0-10 Numeric Allergies/Adverse Reactions: Allergies Allergy/AdvReac Type Severity Reaction Status Date / Time seasonal Allergy Eyes Uncoded 11/08/18 15:09 Itchy/Swollen/Red/Watery Home Medications: Home Medications Bismuth Subsalicylate [Pepto-Bismol] 2 tab PO ONCE 11/08/18 [History Confirmed 11/08/18] Ibuprofen TAB* [Motrin TAB* 800 MG] 800 mg PO ONCE 11/08/18 [History Confirmed 11/08/18] PMH/Surg Hx/FS Hx/Imm Hx Respiratory History: Asthma Other History Of: Negative For: HIV, Hepatitis C - Surgical History Surgical History: Yes Surgery Procedure, Year, and Place: LIP SURGERY 2014 - Family History Known Family History: Positive: Hypertension, Renal Disease - FATHERS FAIMILY KIDNEY STONES, Blood Disorder - BLOOD CLOTS ON MOTHER'S SIDE, Other - asthma, MIGRAINES Negative: Cardiac Disease, Diabetes - Social History Lives: With Family Alcohol Use: Occasionally Substance Use Type: None Substance Use Comment - Amount & Last Used: a week ago Smoking Status (MU): Never Smoked Tobacco Have You Smoked in the Last Year: No Household Exposure Type: Cigarettes - Immunization History Most Recent Influenza Vaccination: 2016 Most Recent Tetanus Shot: <5 YEARS Most Recent Pneumonia Vaccination: never Vaccination Up to Date: Yes Review of Systems All Other Systems Reviewed And Are Negative: Yes Constitutional: Positive: Negative Skin: Positive: Negative Eyes: Positive: Negative ENT: Positive: Negative Respiratory: Positive: Negative Cardiovascular: Positive: Negative Gastrointestinal: Positive: Abdominal Pain, Nausea Genitourinary: Positive: Negative Motor: Positive: Negative Neurovascular: Positive: Negative Musculoskeletal: Positive: Negative Neurological: Positive: Negative Psychological: Positive: Negative Physical Exam - Summary Physical Exam Summary: GENERAL: NAD. WDWN. No pain distress. SKIN: No rashes, sores, lesions, or open wounds. NECK: Supple. Nontender. No lymphadenopathy. CHEST: CTAB. No r/r/w. No accessory muscle use. Breathing comfortably and in no distress. CV: RRR. Without m/r/g. Pulses intact. Cap refill <2seconds ABDOMEN: Slight epigastric and RUQ TTP. Negative trujillo sign. Soft. No distention or guarding. No CVA tenderness. Bowel sounds present NEURO: Alert. PSYCH: Age appropriate behavior. Triage Information Reviewed: Yes Vital Signs: Initial Vital Signs Temp 98.3 F 11/08/18 15:05 Pulse 83 11/08/18 15:05 Resp 16 11/08/18 15:05 BP 120/77 11/08/18 15:05 Pulse Ox 100 11/08/18 15:05 Vital Signs Reviewed: Yes Re-Evaluation - Re-Evaluation First Eval Re-Evaluation Time: 16:40 Change: Improved Comment: Reviewed US results. Pt states symptoms have resolved s/p meds Abd Pain Female Course/Dx - Course Course Of Treatment: UA with blood, but pt is on her period. Urine negative. She is well appearing and VSS. Exam with slight epigastric and RUQ tenderness - otherwise normal. I discussed with the pt that her symptoms are quite vague and, given her persistent symptoms, recommend she be further evaluated in the ED for likely CT scan with po contrast. She did not want to do this and is requesting evaluation in the UC, therefore I ordered for a gallbladder US as this seems most clinically relevant to her symptomology. She was given zofran, maaloxx, and pepcid in the clinic for her discomfort US gallbladder: IMPRESSION: #. Hepatosteatosis. #. No evidence for gallbladder pathology. Discussed results with pt. She states she is feeling much better s/p maalox, pepcid, and zofran and her symptoms have resolved. Will dc with maalox and pepcid. Advance diet as tolerated. Advised to go to ED if her symptoms persist or worsen. - Differential Dx/Diagnosis Provider Diagnosis: RUQ pain, Nausea Discharge - Sign-Out/Discharge Documenting (check all that apply): Patient Departure All imaging exams completed and their final reports reviewed: Yes - Discharge Plan Condition: Stable Disposition: HOME Prescriptions: Al Hydrox/Mg Hydrox/Simet LIQ* [Maalox Plus*] 30 ml PO Q6H PRN #1 bottle PRN Reason: Nausea Famotidine TAB* [Pepcid 20 MG TAB*] 20 mg PO DAILY #14 tab Patient Education Materials: Acute Nausea and Vomiting (ED), Abdominal Pain (ED ) Referrals: Ti Segura MD [Primary Care Provider] - Additional Instructions: If you develop a fever, shortness of breath, chest pain, new or worsening symptoms - please call your PCP or go to the ED immediately. - Billing Disposition and Condition Condition: STABLE Disposition: Home
[2018-11-08] MEDS ORDERED: Al Hydrox/Mg Hydrox/Simet LIQ* 30 ML UDC PO ONE (15:40)
[2018-11-08] MEDS ORDERED: Ondansetron ODT TAB* 4 MG SL ONE (15:40)
[2018-11-08] MEDS ORDERED: Famotidine TAB* 20 MG PO ONE (15:41)
== END 2018-11-08 16:55 | disposition home or self-care (01) ==
LOC: UCEAST 14:32
DX: R10.11 Right upper quadrant pain (principal); R11.0 Nausea; J45.909 Unspecified asthma, uncomplicated
CPT/HCPCS: 76705; 81002; 81025; 99212; A9270-GY; G0463

== ENCOUNTER 2018-11-14 16:36 | Emergency (ER) | payer OTHER, MEDICAID ==
[2018-11-14 16:55] LABS: ABS Basophils 0.1 10^3/ul (0-0.2); ABS Eosinophils 0.3 10^3/ul (0-0.6); ABS Lymphocytes 2.6 10^3/ul (1.0-4.8); ABS Monocytes 0.7 10^3/ul (0-0.8); Eosinophil % 4.1 %; Hematocrit 38 % (35-47); Hemoglobin 12.9 g/dL (12.0-16.0); Lymphocyte % 39.2 %; Mean Corpuscular HGB Conc 34 g/dL (31-36); Mean Corpuscular Hemoglobin 29 pg (27-31); Mean Corpuscular Volume 86 fL (80-97); Mean Platelet Volume 7.6 fL (7.4-10.4); Nucleated Red Blood Cells % 0.1; Platelet Count 319 10^3/uL (150-450); Red Blood Count 4.38 10^6 /uL (3.70-4.87); Red Cell Distribution Width 14 % (10-15); White Blood Count 6.7 10^3/uL (3.5-10.8)
[2018-11-14 17:22] LABS: Albumin 4.2 g/dL (3.2-5.2); Albumin/Globulin Ratio 1.3 (1-3); BUN/Creatinine Ratio 13.9 (8-20); Calcium 9.8 mg/dL (8.6-10.3); EGFR Non-African American 103.3 (>60); Globulin 3.3 g/dL (2-4); Potassium 3.5 mmol/L (3.5-5.0); Total Bilirubin 0.5 mg/dL (0.2-1.0); Total Protein 7.5 g/dL (6.4-8.9)
[2018-11-14] MEDS ORDERED: Diazepam TAB(*) 5 MG PO ONE (18:17)
--- NOTE | 2018-11-14 18:57 | ED ---
HPI Chest Pain - HPI Summary HPI Summary: Patient complains of chest pain starting this morning with associated numbness and tingling in bilateral arms, SOB, lightheadedness. Pain described as a pressure, midsternal, not worse with exertion, currently 7/10. Rates anxiety currently at 7/10. Pain described as intermittent at first and then constant. Patient has history of similar symptoms with prior panic attacks. Denies prior cardiac history, admits to significant increase in stress recently. Contrary to triage note patient did not try inhaler today. Denies fever, cough, sore throat, N/V/D, abdominal pain, change in urine, change in BM. Medical history is asthma, fibromyalgia. Patient states she has a family history of blood clots. Denies OCPs, admits to 7 hour car ride yesterday, admits to unilateral leg pain yesterday. Denies recent surgery or trauma, , history of cancer, hemoptysis. - History of Current Complaint Chief Complaint: EDChestPainROMI Time Seen by Provider: 11/14/18 17:34 Hx Obtained From: Patient Hx Last Menstrual Period: [id number] Onset/Duration: Started Hours Ago Timing: Constant Initial Severity: Mild Current Severity: Severe Pain Intensity: 9 Pain Scale Used: 0-10 Numeric Chest Pain Location: Discrete at:, Mid Sternal Chest Pain Radiates: Yes Chest Pain Radiates To:: Arm Character: Pressure/Squeezing Aggravating Factor(s): Nothing Alleviating Factor(s): Rest Associated Signs and Symptoms: Positive: Chest Pain, Numbness, Tingling, Shortness of Breath, Lightheadedness - Risk Factors Pulmonary Embolism Risk Factors: Recent Travel - Allergy/Home Medications Allergies/Adverse Reactions: Allergies Allergy/AdvReac Type Severity Reaction Status Date / Time No Known Allergies Allergy Verified 11/14/18 16:43 PMH/Surg Hx/FS Hx/Imm Hx Endocrine/Hematology History: Reports: Hx Thyroid Disease, Hx Anemia Denies: Hx Diabetes Cardiovascular History: Denies: Hx Hypertension, Hx Pacemaker/ICD Respiratory History: Reports: Hx Asthma, Hx Seasonal Allergies Denies: Hx Chronic Obstructive Pulmonary Disease (COPD) GI History: Reports: Hx Gastroesophageal Reflux Disease Denies: Hx Ulcer History: Denies: Hx Renal Disease Musculoskeletal History: Reports: Hx Fibromyalgia Sensory History: Denies: Hx Legally Blind, Hx Hearing Aid Opthamlomology History: Denies: Hx Legally Blind Neurological History: Denies: Hx Developmental Delay Psychiatric History: Reports: Hx Anxiety, Hx Depression, Hx Community Mental Health Tx, Hx Bipolar Disorder Denies: Hx Eating Disorder - pt states she restricts, Hx Panic Disorder, Hx Inpatient Treatment, Hx Suicide Attempt, Hx of Violent Episodes Against Others, Hx Substance Abuse - Surgical History Surgery Procedure, Year, and Place: LIP SURGERY 2014 - Immunization History Date of Tetanus Vaccine: unk Date of Influenza Vaccine: none Infectious Disease History: No Infectious Disease History: Denies: Hx Clostridium Difficile, Hx Hepatitis, Hx Human Immunodeficiency Virus (HIV), Hx of Known/Suspected MRSA, Hx Shingles, Hx Tuberculosis, Hx Known/ Suspected VRE, Hx Known/Suspected VRSA, History Other Infectious Disease, Traveled Outside the [place] in Last 30 Days - Family History Known Family History: Positive: Hypertension, Renal Disease - FATHERS FAIMILY KIDNEY STONES, Blood Disorder - BLOOD CLOTS ON MOTHER'S SIDE, Other - asthma, MIGRAINES Negative: Cardiac Disease, Diabetes - Social History Alcohol Use: Occasionally Alcohol Amount: pt states daily or weekly. 01/17 denies use Hx Substance Use: No Substance Use Type: Reports: None Substance Use Comment - Amount & Last Used: a week ago Hx Tobacco Use: No Smoking Status (MU): Never Smoked Tobacco Have You Smoked in the Last Year: No Review of Systems Constitutional: Negative Eyes: Negative ENT: Negative Positive: Chest Pain Positive: Shortness Of Breath Gastrointestinal: Negative Genitourinary: Negative Musculoskeletal: Negative Skin: Negative Neurological: Negative Psychological: Normal All Other Systems Reviewed And Are Negative: Yes Physical Exam - Summary Physical Exam Summary: Chest pain not reproducible. Lung sounds clear to auscultation bilaterally. RRR. Abdomen soft nontender. Triage Information Reviewed: Yes Vital Signs On Initial Exam: Initial Vitals Temp Pulse Resp BP Pulse Ox 98.5 F 108 20 138/88 100 11/14/18 16:39 11/14/18 16:39 11/14/18 16:39 11/14/18 16:39 11/14/18 16:39 Vital Signs Reviewed: Yes Appearance: Positive: Well-Appearing Skin: Positive: Warm Head/Face: Positive: Normal Head/Face Inspection Eyes: Positive: Normal ENT: Positive: Normal ENT inspection Neck: Positive: Supple Respiratory/Lung Sounds: Positive: Clear to Auscultation Cardiovascular: Positive: Normal Abdomen Description: Positive: Nontender Musculoskeletal: Positive: Normal Neurological: Positive: Normal Psychiatric: Positive: Normal AVPU Assessment: Alert - Naveen Coma Scale Best Eye Response: 4 - Spontaneous Best Motor Response: 6 - Obeys Commands Best Verbal Response: 5 - Oriented Coma Scale Total: 15 Diagnostics - Vital Signs Vital Signs Temp Pulse Resp BP Pulse Ox 11/14/18 18:36 18 11/14/18 16:39 98.5 F 108 20 138/88 100 - Laboratory Lab Results: Lab Results 11/14/18 11/14/18 11/14/18 Range/Units 16:48 16:48 16:48 WBC 6.7 (3.5-10.8) 10^3/uL RBC 4.38 (3.70-4.87) 10^6 /uL Hgb 12.9 (12.0-16.0) g/dL Hct 38 (35-47) % MCV 86 (80-97) fL MCH 29 (27-31) pg MCHC 34 (31-36) g/dL RDW 14 (10-15) % Plt Count 319 (150-450) 10^3/uL MPV 7.6 (7.4-10.4) fL Neut % (Auto) 44.9 % Lymph % (Auto) 39.2 % Wayne % (Auto) 11.0 % Eos % (Auto) 4.1 % Baso % (Auto) 0.8 % Absolute Neuts (auto) 3.0 (1.5-7.7) 10^3/ul Absolute Lymphs (auto) 2.6 (1.0-4.8) 10^3/ul Absolute Monos (auto) 0.7 (0-0.8) 10^3/ul Absolute Eos (auto) 0.3 (0-0.6) 10^3/ul Absolute Basos (auto) 0.1 (0-0.2) 10^3/ul Absolute Nucleated RBC 0.0 10^3/ul Nucleated RBC % 0.1 INR (Anticoag Therapy) 1.10 H (0.82-1.09) D-Dimer, Quantitative < 200 (Less Than 230) ng/mL Sodium 135 (135-145) mmol/L Potassium 3.5 (3.5-5.0) mmol/L Chloride 102 (101-111) mmol/L Carbon Dioxide 20 L (22-32) mmol/L Anion Gap 13 H (2-11) mmol/L BUN 10 (6-24) mg/dL Creatinine 0.72 (0.51-0.95) mg/dL Est GFR ( Amer) 125.0 (>60) Est GFR (Non-Af Amer) 103.3 (>60) BUN/Creatinine Ratio 13.9 (8-20) Glucose 100 (70-100) mg/dL Calcium 9.8 (8.6-10.3) mg/dL Total Bilirubin 0.50 (0.2-1.0) mg/dL AST 16 (13-39) U/L ALT 8 (7-52) U/L Alkaline Phosphatase 51 (34-104) U/L Troponin I 0.00 (<0.04) ng/mL Total Protein 7.5 (6.4-8.9) g/dL Albumin 4.2 (3.2-5.2) g/dL Globulin 3.3 (2-4) g/dL Albumin/Globulin Ratio 1.3 (1-3) Result Diagrams: 11/14/18 16:48 11/14/18 16:48 Lab Statement: Any lab studies that have been ordered have been reviewed, and results considered in the medical decision making process. Chest Pain Course/Dx - Course Course Of Treatment: Patient complains of chest pain starting this morning with associated numbness and tingling in bilateral arms, SOB, lightheadedness. Pain described as a pressure, midsternal, not worse with exertion, currently 7/10. Rates anxiety currently at 7/10. Pain described as intermittent at first and then constant. Patient has history of similar symptoms with prior panic attacks. Denies prior cardiac history, admits to significant increase in stress recently. Contrary to triage note patient did not try inhaler today. Denies fever, cough, sore throat, N/V/D, abdominal pain, change in urine, change in BM. Medical history is asthma, fibromyalgia. Patient states she has a family history of blood clots. Denies OCPs, admits to 7 hour car ride yesterday, admits to unilateral leg pain yesterday. Denies recent surgery or trauma, , history of cancer, hemoptysis. Intermittently mildly tachycardic. Vital signs otherwise within normal limits. Labs unremarkable. EKG sinus tachycardia. PERC positive. D-dimer negative. Patient states she felt better after Valium 5 mg by mouth. - Diagnoses Provider Diagnoses: Atypical chest pain, Panic attack Discharge - Sign-Out/Discharge Documenting (check all that apply): Patient Departure Patient Received Moderate/Deep Sedation with Procedure: No - Discharge Plan Condition: Stable Disposition: HOME Patient Education Materials: Chest Pain (ED), Panic Attack (ED) Referrals: Ti Segura MD [Primary Care Provider] - Additional Instructions: Follow-up with primary care. Return to the ED for any new or worsening symptoms. - Billing Disposition and Condition Condition: STABLE Disposition: Home
[2018-11-14 19:12] VITALS: BP 137/77
== END 2018-11-14 19:24 | disposition home or self-care (01) ==
LOC: ED 16:36
DX: F41.0 Panic disorder [episodic paroxysmal anxiety] (principal); R07.89 Other chest pain; E07.9 Disorder of thyroid, unspecified; D64.9 Anemia, unspecified; J45.909 Unspecified asthma, uncomplicated; K21.9 Gastro-esophageal reflux disease without esophagitis
CPT/HCPCS: 36415; 80053; 84484; 85025; 85379; 85610; 93005; 99282; A9270-GY

== ENCOUNTER 2018-12-21 17:04 | Emergency (ER) | payer OTHER, MEDICAID ==
[2018-12-21 17:47] VITALS: BP 143/80
--- NOTE | 2018-12-21 18:28 | UC ---
Truncal Trauma HPI - HPI Summary HPI Summary: Patient is a 18-year-old female that has had pain across her lower chest 3 days. She thinks is related to leaning against a bar at work. Pain is worse with any twisting or pressure on chest wall. She has also had diffuse back pain. She states the pain is just slightly worse on the left side. She denies any shortness of breath. She has no cough. She has no abdominal pain or UTI symptoms. - History Of Current Complaint Chief Complaint: UCBackPain Stated Complaint: RIB PAIN Time Seen by Provider: 12/21/18 18:13 Hx Obtained From: Patient Hx Last Menstrual Period: December 02, 2018 Onset/Duration: Gradual Onset, Lasting Days Severity Initially: Moderate Severity Currently: Moderate Pain Intensity: 7 Pain Scale Used: 0-10 Numeric Mechanism Of Injury: Unknown Aggravating Factor(s): Movement, Deep Breathing Alleviating factor(s): Rest, OTC Medication, Shallow Breathing Associated Signs And Symptoms: Positive: Chest Pain Torso: 1 - pain here 2 - pain here - Allergies/Home Medications Allergies/Adverse Reactions: Allergies Allergy/AdvReac Type Severity Reaction Status Date / Time No Known Allergies Allergy Verified 12/21/18 17:44 Home Medications: Home Medications Pseudoephedrine HCl [Sudafed] 30 mg PO Q12HR PRN 12/21/18 [History Confirmed ] PMH/Surg Hx/FS Hx/Imm Hx Previously Healthy: Yes Other History Of: Negative For: HIV, Hepatitis C - Surgical History Surgical History: Yes Surgery Procedure, Year, and Place: LIP SURGERY 2014 - Family History Known Family History: Positive: Hypertension, Renal Disease - FATHERS FAIMILY KIDNEY STONES, Blood Disorder - BLOOD CLOTS ON MOTHER'S SIDE, Other - asthma, MIGRAINES Negative: Cardiac Disease, Diabetes - Social History Alcohol Use: None Alcohol Amount: pt states daily or weekly. 01/17 denies use Substance Use Type: None Substance Use Comment - Amount & Last Used: a week ago Smoking Status (MU): Never Smoked Tobacco Have You Smoked in the Last Year: No Household Exposure Type: Cigarettes - Immunization History Most Recent Influenza Vaccination: 2016 Most Recent Tetanus Shot: <5 YEARS Most Recent Pneumonia Vaccination: never Vaccination Up to Date: Yes Review of Systems All Other Systems Reviewed And Are Negative: Yes Constitutional: Positive: Negative Skin: Positive: Negative Eyes: Positive: Negative ENT: Positive: Negative Respiratory: Positive: Negative Cardiovascular: Positive: Chest Pain Gastrointestinal: Positive: Negative Genitourinary: Positive: Negative Musculoskeletal: Positive: Arthralgia - back Neurological: Positive: Negative Psychological: Positive: Negative Physical Exam Triage Information Reviewed: Yes Appearance: Well-Appearing, No Pain Distress, Well-Nourished Vital Signs: Initial Vital Signs Temp 99.5 F 12/21/18 17:45 Pulse 92 12/21/18 17:45 Resp 18 12/21/18 17:45 BP 143/80 12/21/18 17:45 Pulse Ox 100 12/21/18 17:45 Vital Signs Reviewed: Yes Eyes: Positive: Conjunctiva Clear ENT: Positive: Hearing grossly normal, Uvula midline. Negative: Nasal congestion, Nasal drainage, Tonsillar swelling, Tonsillar exudate, Trismus, Muffled voice, Hoarse voice Dental Exam: Normal Neck: Positive: Supple, Nontender, No Lymphadenopathy Respiratory: Positive: Lungs clear, Normal breath sounds, No respiratory distress, No accessory muscle use. Negative: Chest non-tender Cardiovascular: Positive: RRR, No Murmur Abdomen Description: Positive: Nontender, No Organomegaly. Negative: CVA Tenderness (R), CVA Tenderness (L) Musculoskeletal: Positive: ROM Intact, No Edema Neurological: Positive: Alert, Muscle Tone Normal Psychological Exam: Normal Skin Exam: Normal Diagnostics - Radiology No standard instances Radiology Interpretation Completed By: ED Physician Summary of Radiographic Findings: CXR: NAD, scoliosis Truncal Trauma Course/Dx - Differential Dx/Diagnosis Provider Diagnosis: Chest wall pain, Lumbar strain Discharge ED - Sign-Out/Discharge Documenting (check all that apply): Patient Departure All imaging exams completed and their final reports reviewed: No - Discharge Plan Condition: Stable Disposition: HOME Patient Education Materials: Chest Wall Pain (ED), Low Back Strain (ED) Referrals: Ti Segura MD [Primary Care Provider] - 1 Week Additional Instructions: recheck for new or worsening symptoms - Billing Disposition and Condition Condition: STABLE Disposition: Home
--- NOTE | 2018-12-22 14:23 | UC ---
- Progress Note Progress Note: Radiology report reviewed. No active cardiopulmonary disease is noted. No change in management. Course/Dx - Diagnoses Provider Diagnoses: Chest wall pain, Lumbar strain Discharge ED - Sign-Out/Discharge Documenting (check all that apply): Post-Discharge Follow Up All imaging exams completed and their final reports reviewed: Yes - Discharge Plan Condition: Stable Disposition: HOME Prescriptions: Cyclobenzaprine (NF) [Cyclobenzaprine 5 MG (NF)] 5 mg PO TID PRN #21 tab PRN Reason: Spasms - Back Naproxen [Naproxen 500 mg tab] 500 mg PO BID PRN #20 tablet PRN Reason: Pain Patient Education Materials: Low Back Strain (ED), Chest Wall Pain (ED) Referrals: Ti Segura MD [Primary Care Provider] - 1 Week Additional Instructions: recheck for new or worsening symptoms - Billing Disposition and Condition Condition: STABLE Disposition: Home
== END 2018-12-21 18:45 | disposition home or self-care (01) ==
LOC: UCEAST 17:04
DX: R07.89 Other chest pain (principal); S39.012A Strain of muscle, fascia and tendon of lower back, initial encounter; X58.XXXA Exposure to other specified factors, initial encounter; Y92.9 Unspecified place or not applicable
CPT/HCPCS: 71046; 99212; G0463

== ENCOUNTER 2018-12-25 01:50 | Emergency (ER) | payer OTHER, MEDICAID ==
--- NOTE | 2018-12-25 02:21 | ED ---
GI/ HPI - HPI Summary HPI Summary: This patient is a 18 year old female presenting to [facility] with a chief complaint of nausea since 2 weeks ago. She reports abdominal pain and facial pressure. She denies vomiting. She has a Hx of asthma and states that the nausea is affecting her breathing but states she does not currently have asthma exacerbation. She reports it is also contributing to a chest pressure. - History of Current Complaint Chief Complaint: EDUpperRespComplaint Time Seen by Provider: 12/25/18 02:11 Stated Complaint: DOESNT FEEL GOOD PER PT Hx Obtained From: Patient Hx Last Menstrual Period: December 02, 2018 Onset/Duration: Started Days Ago Timing: Constant Pain Intensity: 5 - Allergy/Home Medications Allergies/Adverse Reactions: Allergies Allergy/AdvReac Type Severity Reaction Status Date / Time No Known Allergies Allergy Verified 12/25/18 02:00 PMH/Surg Hx/FS Hx/Imm Hx Endocrine/Hematology History: Reports: Hx Thyroid Disease, Hx Anemia Denies: Hx Diabetes Cardiovascular History: Denies: Hx Hypertension, Hx Pacemaker/ICD Respiratory History: Reports: Hx Asthma, Hx Seasonal Allergies Denies: Hx Chronic Obstructive Pulmonary Disease (COPD) GI History: Reports: Hx Gastroesophageal Reflux Disease Denies: Hx Ulcer History: Denies: Hx Renal Disease Musculoskeletal History: Reports: Hx Fibromyalgia Sensory History: Denies: Hx Legally Blind, Hx Hearing Aid Opthamlomology History: Denies: Hx Legally Blind Neurological History: Denies: Hx Developmental Delay Psychiatric History: Reports: Hx Anxiety, Hx Depression, Hx Community Mental Health Tx, Hx Bipolar Disorder Denies: Hx Eating Disorder - pt states she restricts, Hx Panic Disorder, Hx Inpatient Treatment, Hx Suicide Attempt, Hx of Violent Episodes Against Others, Hx Substance Abuse - Surgical History Surgery Procedure, Year, and Place: LIP SURGERY 2014 - Immunization History Date of Tetanus Vaccine: unk Date of Influenza Vaccine: none Infectious Disease History: No Infectious Disease History: Denies: Hx Clostridium Difficile, Hx Hepatitis, Hx Human Immunodeficiency Virus (HIV), Hx of Known/Suspected MRSA, Hx Shingles, Hx Tuberculosis, Hx Known/ Suspected VRE, Hx Known/Suspected VRSA, History Other Infectious Disease, Traveled Outside the [place] in Last 30 Days - Family History Known Family History: Positive: Hypertension, Renal Disease - FATHERS FAIMILY KIDNEY STONES, Blood Disorder - BLOOD CLOTS ON MOTHER'S SIDE, Other - asthma, MIGRAINES Negative: Cardiac Disease, Diabetes - Social History Alcohol Use: None Alcohol Amount: pt states daily or weekly. 01/17 denies use Hx Substance Use: No Substance Use Type: Reports: None Substance Use Comment - Amount & Last Used: a week ago Hx Tobacco Use: No Smoking Status (MU): Never Smoked Tobacco Have You Smoked in the Last Year: No Review of Systems Negative: Fever Positive: Chest Pain - Pressure Respiratory: Negative Positive: Abdominal Pain, Nausea. Negative: Vomiting Positive: Headache - Facial pressure All Other Systems Reviewed And Are Negative: Yes Physical Exam - Summary Physical Exam Summary: Appearance: Well-appearing, Well-nourished, lying in bed comfortably Skin: Warm, dry, no obvious rash Eyes: sclera anicteric, no conjunctival pallor ENT: mucous membranes moist, pharynx appears normal Neck: Supple, nontender Respiratory: Clear to auscultation, no signs of respiratory distress Cardiovascular: Normal S1, S2. No murmurs. Normal distal pulses in tibial and radial bilaterally. Abdomen: Soft, nontender, normal active bowel sounds present Musculoskeletal: Normal, Strength/ROM Intact Neurological: A&Ox3, awake and alert, mentation is normal, speech is fluent and appropriate Psychiatric: affect is normal, does not appear anxious or depressed Triage Information Reviewed: Yes Vital Signs On Initial Exam: Initial Vitals Temp Pulse Resp BP Pulse Ox 98.5 F 80 16 120/83 98 12/25/18 01:55 12/25/18 01:55 12/25/18 01:55 12/25/18 01:55 12/25/18 01:55 Vital Signs Reviewed: Yes Procedures - Sedation Patient Received Moderate/Deep Sedation with Procedure: No Diagnostics - Vital Signs Vital Signs Temp Pulse Resp BP Pulse Ox 12/25/18 01:55 98.5 F 80 16 120/83 98 - Laboratory Lab Statement: Any lab studies that have been ordered have been reviewed, and results considered in the medical decision making process. - Radiology CXR Radiology Interpretation Completed By: ED Physician Summary of Radiographic Findings: No acute process. Pending offical radiologist report. GIGU Course/Dx - Course Course Of Treatment: This patient is a 18 year old female presenting to [facility] with a chief complaint of nausea since 2 weeks ago. CXR was unremarkable. A plan for discharge was discussed with the patient and she was agreeable with this plan. - Diagnoses Provider Diagnoses: Viral syndrome Discharge ED - Sign-Out/Discharge Documenting (check all that apply): Patient Departure - Discharge Patient Received Moderate/Deep Sedation with Procedure: No - Discharge Plan Condition: Good Disposition: HOME Prescriptions: Ondansetron ODT TAB* [Zofran 4 MG Odt TAB*] 8 mg PO Q6H PRN #12 tab.odt PRN Reason: Nausea Patient Education Materials: Acute Nausea and Vomiting (ED), Viral Syndrome (ED ) Referrals: Ti Segura MD [Primary Care Provider] - 3 Days (if not improving) - Billing Disposition and Condition Condition: GOOD Disposition: Home - Attestation Statements Document Initiated by Venancioibe: Yes Documenting Scribe: Ho Benz Provider For Whom Osbaldo is Documenting (Include Credential): Colton Wells MD Scribcarlos Attestation: Ho Colvin, josé migueled for Colton Wells MD on 12/31/18 at 0331. Scribe Documentation Reviewed: Yes Provider Attestation: The documentation as recorded by the Ho giron accurately reflects the service I personally performed and the decisions made by Colton chavez MD Status of Scribcarlos Document: Viewed
[2018-12-25] MEDS ORDERED: Ondansetron ODT TAB* 4 MG SL ONE (02:48)
[2018-12-25 03:09] VITALS: BP 105/67
== END 2018-12-25 03:07 | disposition home or self-care (01) ==
LOC: ED 01:50
DX: B34.9 Viral infection, unspecified (principal); E07.9 Disorder of thyroid, unspecified; D64.9 Anemia, unspecified; J45.909 Unspecified asthma, uncomplicated; K21.9 Gastro-esophageal reflux disease without esophagitis; F41.9 Anxiety disorder, unspecified; F32.9 Major depressive disorder, single episode, unspecified
CPT/HCPCS: 71046; 99283; A9270-GY

== ENCOUNTER 2019-03-08 17:24 | Emergency (ER) | payer OTHER ==
--- NOTE | 2019-03-08 17:29 | UC ---
Cardiac HPI - HPI Summary HPI Summary: 18 yo female presents with chest pain. She tells me that around 1500 today she developed left sided chest pain that she describes as a "pinching" that feels that it is shooting posteriorly into her back. Pain started abruptly while at work. Since that time pain has been constant and has not changed. No change with position or eating/drinking. She endorses slight nausea, feeling short of breath, and slight dizziness. She mentions that she has had pain like this before and has gone to the ER and workup has been normal - last time was about 2 -3 months ago per pt. She states she has a history of anxiety and thinks it could be anxiety related, although she does not feel anxious at this time. She has a fam hx of blood clots on her mother's side of the family, but no NE/ACS/ CAD. Denies fever, chills, recent illness, cough, abdominal pain, vomiting, dysuria, weakness. - History of Current Complaint Stated Complaint: CHEST PAIN Time Seen by Provider: 03/08/19 17:28 Hx Obtained From: Patient Hx Last Menstrual Period: December 02, 2018 Onset/Duration: Sudden Onset Initial Severity: Severe Current Severity: Severe Pain Intensity: 9 - Allergy/Home Medications Allergies/Adverse Reactions: Allergies Allergy/AdvReac Type Severity Reaction Status Date / Time No Known Allergies Allergy Verified 03/08/19 17:41 Home Medications: Home Medications Ibuprofen TAB* [Advil TAB*] 200 mg PO Q6HR 03/08/19 [History Confirmed 03/08/19] PMH/Surg Hx/FS Hx/Imm Hx Respiratory History: Asthma Psychological History: Anxiety Other History Of: Negative For: HIV, Hepatitis C - Surgical History Surgical History: Yes Surgery Procedure, Year, and Place: LIP SURGERY 2014 - Family History Known Family History: Positive: Hypertension, Renal Disease - FATHERS FAIMILY KIDNEY STONES, Blood Disorder - BLOOD CLOTS ON MOTHER'S SIDE, Other - asthma, MIGRAINES Negative: Cardiac Disease, Diabetes - Social History Alcohol Use: None Alcohol Amount: pt states daily or weekly. 01/17 denies use Substance Use Type: None Substance Use Comment - Amount & Last Used: a week ago Smoking Status (MU): Never Smoked Tobacco Have You Smoked in the Last Year: No Household Exposure Type: Cigarettes - Immunization History Most Recent Influenza Vaccination: 2016 Most Recent Tetanus Shot: <5 YEARS Most Recent Pneumonia Vaccination: never Vaccination Up to Date: Yes Review of Systems All Other Systems Reviewed And Are Negative: No Constitutional: Positive: Negative Skin: Positive: Negative Eyes: Positive: Negative ENT: Positive: Negative Respiratory: Positive: Negative Cardiovascular: Positive: Chest Pain Gastrointestinal: Positive: Nausea Genitourinary: Positive: Negative Motor: Positive: Negative Neurovascular: Positive: Negative Musculoskeletal: Positive: Negative Neurological: Positive: Other - Dizziness Psychological: Positive: Negative Physical Exam - Summary Physical Exam Summary: GENERAL: NAD. WDWN. No pain distress. SKIN: No rashes, sores, or open wounds. HEENT: Head: AT/NC Eyes: PERRLA. EOM intact. Conjunctiva clear without inflammation or discharge. Ears: Hearing grossly normal. TMs intact, no bulging, erythema, or edema. Nose: Nasal mucosa pink and moist. NTTP maxillary and frontal sinus. Throat: Posterior oropharynx without exudates, erythema, or tonsillar enlargement. Uvula midline. NECK: Supple. Nontender. No lymphadenopathy. CHEST: CTAB. No r/r/w. No accessory muscle use. Breathing comfortably and in no distress. CV: RRR. Pulses intact. Brisk cap refill. ABDOMEN: Soft. NTTP. No distention or guarding., No organomegaly. No CVA tenderness. Bowel sounds present MSK: FROM and 5/5 strength throughout. No edema. NEURO: Alert. PSYCH: Age appropriate behavior. Triage Information Reviewed: Yes Vital Signs: Vital Signs: Temp Pulse Resp BP Pulse Ox 98.4 F 83 16 109/69 100 03/08/19 17:28 03/08/19 17:28 03/08/19 17:28 03/08/19 17:28 03/08/19 17:28 Vital Signs Reviewed: Yes Diagnostics - EKG Summary of EKG Findings: EKG: NSR 78bpm. No STEMI as read by Dr. Brown - Assessment/Plan Course Of Treatment: EKG as above. Well's score 0. She does not smoke and does not take an OBC. No recent travel. She has no risk factors for DVT/PE other than a distant fam hx of DVTs. Discussed that my suspicion is low for ACS/PE at this time, but cannot appropriately evaluate in the UC and recommended she go to the ER for further evaluation. - Clinical Impression Provider Diagnosis: Chest pain Discharge ED - Sign-Out/Discharge Documenting (check all that apply): Patient Departure All imaging exams completed and their final reports reviewed: No Studies - Discharge Plan Condition: Stable Disposition: HOME-RECOMMEND TO ED Referrals: Ti Segura MD [Primary Care Provider] - Additional Instructions: Your exam and testing here today were normal, but we cannot rule out a blood clot of heart problem in the urgent care. Given this, I recommend that you go to the ER for further evaluation of your chest pain - Billing Disposition and Condition Condition: STABLE Disposition: Home-Recommend to ED - Attestation Statements Provider Attestation: Per institutional requirements, I have reviewed the chart, however, I was not consulted specifically or made aware of this patient by the midlevel provider. I did not personally evaluate, interact with , or disposition this patie
[2019-03-08 17:39] VITALS: BP 109/69
== END 2019-03-08 18:23 | disposition home health service (06) ==
LOC: UCEAST 17:24
DX: R07.9 Chest pain, unspecified (principal); J45.909 Unspecified asthma, uncomplicated
CPT/HCPCS: 81003; 84702; 93005; 99212; G0463

== ENCOUNTER 2019-03-08 18:23 | Emergency (ER) | payer OTHER ==
[2019-03-08 19:00] LABS: ABS Basophils 0.1 10^3/ul (0-0.2); ABS Eosinophils 0.6 10^3/ul (0-0.6); ABS Lymphocytes 2.2 10^3/ul (1.0-4.8); ABS Monocytes 0.7 10^3/ul (0-0.8); ABS Neutrophils 3.1 10^3/ul (1.5-7.7); Hematocrit 39 % (35-47); Hemoglobin 13.4 g/dL (12.0-16.0); Lymphocyte % 33.3 %; Mean Corpuscular HGB Conc 35 g/dL (31-36); Mean Corpuscular Hemoglobin 30 pg (27-31); Mean Corpuscular Volume 87 fL (80-97); Mean Platelet Volume 7.5 fL (7.4-10.4); Nucleated Red Blood Cells % 0.1; Platelet Count 299 10^3/uL (150-450); Red Blood Count 4.46 10^6 /uL (3.70-4.87); Red Cell Distribution Width 13 % (10-15); White Blood Count 6.7 10^3/uL (3.5-10.8)
[2019-03-08 19:06] LABS: INR 1.06 (0.82-1.09)
[2019-03-08 19:17] LABS: Albumin 4.4 g/dL (3.2-5.2); Albumin/Globulin Ratio 1.2 (1-3); BUN/Creatinine Ratio 17.4 (8-20); Calcium 9.4 mg/dL (8.6-10.3); EGFR African American 131.2 (>60); EGFR Non-African American 108.5 (>60); Globulin 3.7 g/dL (2-4); Potassium 3.8 mmol/L (3.5-5.0); Total Bilirubin 0.4 mg/dL (0.2-1.0); Total Protein 8.1 g/dL (6.4-8.9)
[2019-03-08 20:24] VITALS: BP 146/81
== END 2019-03-08 23:48 | disposition left against medical advice (07) ==
LOC: ED 18:23
DX: R07.9 Chest pain, unspecified (principal); Z53.21 Procedure and treatment not carried out due to patient leaving prior to being seen by health care provider
CPT/HCPCS: 36415; 80053; 84484; 85025; 85610; 93005; 99281

== ENCOUNTER 2019-03-09 00:13 | Emergency (ER) | payer OTHER ==
[2019-03-09] MEDS ORDERED: Lidocaine 2% VISCOUS* 15 ML UDC PO ONE (00:37)
[2019-03-09] MEDS ORDERED: Al Hydrox/Mg Hydrox/Simet LIQ* 30 ML UDC PO ONE (00:37)
--- NOTE | 2019-03-09 00:38 | ED ---
HPI Chest Pain - HPI Summary HPI Summary: 18-year-old female presents with chest pain today. She states that she has a pinching type pain on the left side of her chest. She states that is worse with food. She states that it radiates to her back. No shortness of breath. No palpitations. Denies any drug use. Is not a smoker. Is not on control. Does have family history of blood clots but no cardiac family history. No pain or swelling in calf muscles. No recent travel. No recent illness. No cough. Does have a history of asthma. She took ibuprofen without relief. She was seen in [facility] and sent here. She then LWBS but had lab work done at that time. - History of Current Complaint Chief Complaint: EDChestWallPain Time Seen by Provider: 03/09/19 00:32 Hx Last Menstrual Period: December 02, 2018 Pain Intensity: 7 - Allergy/Home Medications Allergies/Adverse Reactions: Allergies Allergy/AdvReac Type Severity Reaction Status Date / Time No Known Allergies Allergy Verified 03/09/19 00:16 PMH/Surg Hx/FS Hx/Imm Hx Endocrine/Hematology History: Reports: Hx Thyroid Disease, Hx Anemia Denies: Hx Diabetes Cardiovascular History: Denies: Hx Hypertension, Hx Pacemaker/ICD Respiratory History: Reports: Hx Asthma, Hx Seasonal Allergies Denies: Hx Chronic Obstructive Pulmonary Disease (COPD) GI History: Reports: Hx Gastroesophageal Reflux Disease Denies: Hx Ulcer History: Denies: Hx Renal Disease Musculoskeletal History: Reports: Hx Fibromyalgia Sensory History: Denies: Hx Legally Blind, Hx Hearing Aid Opthamlomology History: Denies: Hx Legally Blind Neurological History: Denies: Hx Developmental Delay Psychiatric History: Reports: Hx Anxiety, Hx Depression, Hx Community Mental Health Tx, Hx Bipolar Disorder Denies: Hx Eating Disorder - pt states she restricts, Hx Panic Disorder, Hx Inpatient Treatment, Hx Suicide Attempt, Hx of Violent Episodes Against Others, Hx Substance Abuse - Surgical History Surgery Procedure, Year, and Place: LIP SURGERY 2014 - Immunization History Date of Tetanus Vaccine: unk Date of Influenza Vaccine: none Infectious Disease History: No Infectious Disease History: Denies: Hx Clostridium Difficile, Hx Hepatitis, Hx Human Immunodeficiency Virus (HIV), Hx of Known/Suspected MRSA, Hx Shingles, Hx Tuberculosis, Hx Known/ Suspected VRE, Hx Known/Suspected VRSA, History Other Infectious Disease, Traveled Outside the in Last 30 Days - Family History Known Family History: Positive: Hypertension, Renal Disease - FATHERS FAIMILY KIDNEY STONES, Blood Disorder - BLOOD CLOTS ON MOTHER'S SIDE, Other - asthma, MIGRAINES Negative: Cardiac Disease, Diabetes - Social History Alcohol Use: None Alcohol Amount: pt states daily or weekly. 01/17 denies use Hx Substance Use: No Substance Use Type: Reports: None Substance Use Comment - Amount & Last Used: a week ago Hx Tobacco Use: No Smoking Status (MU): Never Smoked Tobacco Have You Smoked in the Last Year: No Review of Systems Negative: Fever Positive: Chest Pain Negative: Shortness Of Breath, Cough All Other Systems Reviewed And Are Negative: Yes Physical Exam Triage Information Reviewed: Yes Vital Signs On Initial Exam: Initial Vitals Temp Pulse Resp BP Pulse Ox 99.1 F 90 16 132/90 98 03/09/19 00:13 03/09/19 00:13 03/09/19 00:13 03/09/19 00:13 03/09/19 00:13 Vital Signs Reviewed: Yes Appearance: Positive: Well-Appearing Skin: Positive: Warm, Dry Head/Face: Positive: Normal Head/Face Inspection Eyes: Positive: Normal, EOMI, AJAY, Conjunctiva Clear ENT: Positive: Normal ENT inspection, Pharynx normal, TMs normal Respiratory/Lung Sounds: Positive: Clear to Auscultation, Breath Sounds Present , Other - reproducible chest pain Cardiovascular: Positive: Normal, RRR Abdomen Description: Positive: Nontender, Soft Bowel Sounds: Positive: Present Musculoskeletal: Positive: Normal Neurological: Positive: Normal Psychiatric: Positive: Normal Procedures - Sedation Patient Received Moderate/Deep Sedation with Procedure: No Diagnostics - Vital Signs Vital Signs Temp Pulse Resp BP Pulse Ox 03/09/19 00:13 99.1 F 90 16 132/90 98 - Laboratory Lab Statement: Any lab studies that have been ordered have been reviewed, and results considered in the medical decision making process. - Radiology chest Radiology Interpretation Completed By: ED Physician Summary of Radiographic Findings: no active disease Re-Evaluation - Re-Evaluation First Eval Re-Evaluation Time: :19 Change: Improved Comment: some improvement Chest Pain Course/Dx - Course Course Of Treatment: 18-year-old female presents with chest pain today. She states that she has a pinching type pain on the left side of her chest. She states that is worse with food. She states that it radiates to her back. No shortness of breath. No palpitations. Denies any drug use. Is not a smoker. Is not on control. Does have family history of blood clots but no cardiac family history. No pain or swelling in calf muscles. No recent travel. No recent illness. No cough. Does have a history of asthma. She took ibuprofen without relief. She was seen in [facility] care and sent here. She then LWBS but had lab work done at that time. On exam has reproducible chest pain. Lungs CTA. Had 2 troponins are negative. EKG showed a sinus rhythm. D-dimer neg. heart score 0. chest xray shows no acute findings. dicussed like musclar wall. maybe GI component as felt better after gi cocktail. told to take ibuprofen for pain. told follow up with primary. patient understand and agrees with plan. - Chest Pain Differential Diagnosis/HQI/PQRI: Chest Wall, GI Disease, Pulmonary Embolism - Diagnoses Provider Diagnoses: Chest wall pain Discharge ED - Sign-Out/Discharge Documenting (check all that apply): Patient Departure - Discharge Plan Condition: Good Disposition: HOME Patient Education Materials: Chest Wall Pain (ED) Referrals: Ti Segura MD [Primary Care Provider] - Additional Instructions: take Tylenol or ibuprofen every 6 hours for pain follow up with primary Return to ED if develop any new or worsening symptoms - Billing Disposition and Condition Condition: GOOD Disposition: Home
[2019-03-09] MEDS ORDERED: Ketorolac INJ* 30 MG/ML 1 ML VIAL IM ONE (01:17)
[2019-03-09 01:27] VITALS: BP 112/73
== END 2019-03-09 01:19 | disposition home or self-care (01) ==
LOC: ED 00:13
DX: R07.89 Other chest pain (principal); E07.9 Disorder of thyroid, unspecified; J45.909 Unspecified asthma, uncomplicated; K21.9 Gastro-esophageal reflux disease without esophagitis; F41.9 Anxiety disorder, unspecified; F32.9 Major depressive disorder, single episode, unspecified
CPT/HCPCS: 36415; 71045; 84484; 85379; 99282; A9270-GY; J1885

== ENCOUNTER 2019-03-27 12:12 | Emergency (ER) | payer OTHER ==
[2019-03-27 12:43] VITALS: BP 132/71
[2019-03-27 13:30] LABS: Influenza A Molecular NEGATIVE (Negative); Influenza B Molecular NEGATIVE (Negative)
--- NOTE | 2019-03-27 13:34 | UC ---
HPI Febrile Illness - HPI Summary HPI Summary: started today, body aches, sore throat, nausea, some head congestion, chills . did not get flu shot this year. nothing makes it better/worse. - History of Current Complaint Chief Complaint: UCGeneralIllness Time Seen by Provider: 03/27/19 13:02 Hx Obtained From: Patient Hx Last Menstrual Period: 03/22/19 Pain Intensity: 7 Pain Scale Used: 0-10 Numeric Aggravating Factors: Nothing Alleviating Factors: Nothing - Allergy/Home Medications Allergies/Adverse Reactions: Allergies Allergy/AdvReac Type Severity Reaction Status Date / Time No Known Allergies Allergy Verified 03/27/19 12:43 PMH/Surg Hx/FS Hx/Imm Hx - Additional Past Medical History Additional PMH: no chronic conditions Other History Of: Negative For: HIV, Hepatitis C - Surgical History Surgical History: Yes Surgery Procedure, Year, and Place: LIP SURGERY 2014 - Family History Known Family History: Positive: Hypertension, Renal Disease - FATHERS FAIMILY KIDNEY STONES, Blood Disorder - BLOOD CLOTS ON MOTHER'S SIDE, Other - asthma, MIGRAINES Negative: Cardiac Disease, Diabetes - Social History Alcohol Use: Rare Alcohol Amount: pt states daily or weekly. 01/17 denies use Substance Use Type: None Substance Use Comment - Amount & Last Used: a week ago Smoking Status (MU): Never Smoked Tobacco Have You Smoked in the Last Year: No Household Exposure Type: Cigarettes - Immunization History Most Recent Influenza Vaccination: 2015 Most Recent Tetanus Shot: <5 YEARS Most Recent Pneumonia Vaccination: never Vaccination Up to Date: Yes Review of Systems All Other Systems Reviewed And Are Negative: Yes Constitutional: Positive: Chills. Negative: Fever, Fatigue Skin: Negative: Rash Eyes: Negative: Drainage ENT: Positive: Sore Throat, Sinus Congestion Respiratory: Positive: Negative Cardiovascular: Positive: Negative Musculoskeletal: Positive: Myalgia Neurological: Positive: Headache Physical Exam Triage Information Reviewed: Yes Appearance: Well-Appearing Vital Signs: Initial Vital Signs Temp 98.5 F 03/27/19 12:39 Pulse 83 03/27/19 12:39 Resp 18 03/27/19 12:39 BP 132/71 03/27/19 12:39 Pulse Ox 99 03/27/19 12:39 Vital Signs Reviewed: Yes Eyes: Positive: Conjunctiva Clear ENT: Positive: Pharynx normal, TMs normal Neck: Positive: Supple, Nontender, No Lymphadenopathy Respiratory: Positive: Lungs clear Cardiovascular Exam: Normal Neurological: Positive: Alert Skin: Negative: Rashes Course/Dx - Course Course Of Treatment: Viral symptoms, acute. rapid flu neg. exam unremarkable as well as vitals. discussed ways to manage and that this was self limiting. - Febrile Illness Differential Diagnoses: Other: - Diagnoses Provider Diagnosis: Viral syndrome Discharge ED - Sign-Out/Discharge Documenting (check all that apply): Patient Departure All imaging exams completed and their final reports reviewed: No Studies - Discharge Plan Condition: Good Disposition: HOME Patient Education Materials: Viral Syndrome (ED) Referrals: Ti Segura MD [Primary Care Provider] - Additional Instructions: Return if not improving. - Billing Disposition and Condition Condition: GOOD Disposition: Home - Attestation Statements Provider Attestation: Per institutional requirements, I have reviewed the chart, however, I was not consulted specifically or made aware of this patient by the midlevel provider. I did not personally evaluate, interact with , or disposition this patient.
== END 2019-03-27 13:41 | disposition home or self-care (01) ==
LOC: UCEAST 12:12
DX: B34.9 Viral infection, unspecified (principal); J02.9 Acute pharyngitis, unspecified; J34.89 Other specified disorders of nose and nasal sinuses; R51 Headache; M79.10 Myalgia, unspecified site
CPT/HCPCS: 99211; G0463

== ENCOUNTER 2024-01-15 00:27 | Inpatient (IN) ==
[2024-01-15 01:33] LABS: Urine Appearance Clear; Urine Bilirubin Negative (Negative); Urine Blood Negative (Negative); Urine Color Colorless; Urine Glucose Negative (Negative); Urine Ketones Negative (Negative); Urine Nitrite Negative (Negative); Urine Protein Negative (Negative); Urine Specific Gravity 1.007 (1.002-1.030); Urine Urobilinogen Negative (Negative)
[2024-01-15 01:48] LABS: Urine Benzodiazepine Screen None Detected (None Detect); Urine Cannabinoids Screen None Detected (None Detect); Urine Opiates Screen None Detected (None Detect)
[2024-01-15] MEDS: Vitamin THERAPEUTIC TAB PO SCH (08:53)
[2024-01-15 12:33] LABS: HCG Pregnancy < 0.60 mIU/mL
[2024-01-15 12:43] LABS: Free T3 4.68 pg/mL (2.5-3.9)
[2024-01-15 12:44] LABS: Free T4 1.03 ng/dL (0.61-1.12)
[2024-01-15] MEDS: Al Hydrox/Mg Hydrox/Simet LIQ 30 ML UDC PO PRN (17:54)
[2024-01-16 07:50] LABS: HDL Cholesterol 37.6 mg/dL
[2024-01-18 09:14] VITALS: BP 128/87
== END 2024-01-18 14:39 | disposition home or self-care (01) | DRG 885 ==
LOC: ED 00:27 → EDHOLD 04:54 → BSU 05:24
PROVIDERS: ADMIT Psychiatry & Neurology Psychiatry; ATTEND Psychiatry & Neurology Psychiatry